=== PATIENT | male | born 1970 | race Caucasian/White ===

== ENCOUNTER → 2016-03-26 | Outpatient (CLI) | payer MEDICARE, MEDICAID ==
[~2016-03-26] MED LIST: ARIP20TA5 PO; ASP325EC PO; BUPR100T71 PO; FAM20T PO; FLUO20CA19 PO; MET25T PO; MORP1CAP31 PO; OXYC10TA44 PO; PRAV20TA3 GT; WARF5TAB71 PO
[2016-03-26 09:05] LABS: Basophils # (auto) 0 uL; Basophils % (auto) 0.3 % (0.0-2.0); DEFINITIVE VIEW TRANSMISSION; Eosinophils # (auto) 0.2 uL; Eosinophils % (auto) 2.8 % (0.0-7.0); Hematocrit 53.5 % (41.0-53.0); Hemoglobin 17.4 g/dL (13.5-17.5); Lymphocytes # (auto) 1.5 uL; Lymphocytes % (auto) 19.3 % (10.0-50.0); Mean Corpuscular Hgb Conc. 32.5 g/dL (32.0-36.0); Mean Corpuscular Volume 86.1 fL (80.0-100.0); Mean Platelet Volume 10.9 fL (7.4-10.4); Monocytes # (auto) 0.4 uL; Monocytes % (auto) 5.2 % (0.0-12.0); Neutrophils # (auto) 5.5 uL; Neutrophils % (auto) 72.4 % (37.0-80.0); Platelet Count (auto) 243 10^3/uL (140-450); Red Cell Distribution Width 15.1 % (11.6-16.0); White Blood Cell 7.6 10^3/uL (4.4-10.8)
[2016-03-26 09:32] LABS: Urine Bilirubin Negative (Negative); Urine Blood Negative /uL (Negative); Urine Color Yellow (Yellow); Urine Glucose Normal (Normal); Urine Ketone Negative (Negative); Urine Mucus FEW (None Seen); Urine Nitrite Negative (Negative); Urine RBC <1 /hpf (0 - 3); Urine Squamous Epithelial Cell FEW /hpf (<5); Urine Urobilinogen Normal (Negative)
[2016-03-26 09:33] LABS: Albumin 4.6 g/dL (3.4-5.0); BUN/Creatinine Ratio 17.1; Bilirubin, Total 0.8 mg/dL (0.2-1.0); Calcium 9.2 mg/dL (8.5-10.1); Potassium 4.3 mmol/L (3.5-5.1); Total Protein 8.5 g/dL (6.4-8.2)
== END | disposition home or self-care (01) ==
LOC: LAB 07:18
PROVIDERS: ATTEND Internal Medicine
DX: Z00.00 Encounter for general adult medical examination without abnormal findings (principal)
CPT/HCPCS: 36415; 80053; 80061; 81001; 84403; 84443; 85025; 85049

== ENCOUNTER → 2016-08-25 | Outpatient (CLI) | payer MEDICARE, MEDICAID ==
[~2016-08-25] MED LIST changes: +ARIP1TAB7 PO; -ARIP20TA5 PO
[2016-08-25 07:27] LABS: Urine Bilirubin Negative (Negative); Urine Blood TRACE /uL (Negative); Urine Color Yellow (Yellow); Urine Glucose Normal (Normal); Urine Ketone Negative (Negative); Urine Mucus FEW (None Seen); Urine Nitrite Negative (Negative); Urine RBC 1 /hpf (0 - 3); Urine Squamous Epithelial Cell FEW /hpf (<5); Urine Urobilinogen Normal (Negative); Urine pH 5.5 (5.0-8.0)
[2016-08-25 07:39] LABS: Basophils # (auto) 0 uL; Basophils % (auto) 0.5 % (0.0-2.0); Eosinophils # (auto) 0.1 uL; Eosinophils % (auto) 3.5 % (0.0-7.0); Hematocrit 42.3 % (41.0-53.0); Hemoglobin 14.3 g/dL (13.5-17.5); Mean Corpuscular Hemoglobin 29.2 pg (28.0-32.0); Mean Corpuscular Hgb Conc. 33.7 g/dL (32.0-36.0); Mean Corpuscular Volume 86.6 fL (80.0-100.0); Monocytes # (auto) 0.4 uL; Monocytes % (auto) 8.9 % (0.0-12.0); Neutrophils # (auto) 2.6 uL; Neutrophils % (auto) 63.1 % (37.0-80.0); Platelet Count (auto) 223 10^3/uL (140-450); Red Cell Distribution Width 15.1 % (11.6-16.0); White Blood Cell 4.1 10^3/uL (4.4-10.8)
[2016-08-25 07:44] LABS: Albumin 3.8 g/dL (3.4-5.0); BUN/Creatinine Ratio 17.1; Bilirubin, Total 0.4 mg/dL (0.2-1.0); Calcium 8.5 mg/dL (8.5-10.1); Potassium 4.6 mmol/L (3.5-5.1); Total Protein 6.9 g/dL (6.4-8.2)
== END | disposition home or self-care (01) ==
LOC: LAB 06:39
PROVIDERS: ATTEND Internal Medicine
DX: I10 Essential (primary) hypertension (principal); F20.3 Undifferentiated schizophrenia; Z79.899 Other long term (current) drug therapy
CPT/HCPCS: 36415; 80053; 80061; 81001; 82306; 84403; 84443; 85025

== ENCOUNTER 2016-10-24 08:28 | Emergency (ER) | payer MEDICARE, MEDICAID ==
[~2016-10-24] VITALS: Ht 182.9 cm; Wt 136.1 kg
[2016-10-24 09:28] LABS: Basophils # (auto) 0 uL; Basophils % (auto) 0.2 % (0.0-2.0); CONDITION Y; Eosinophils # (auto) 0 uL; Eosinophils % (auto) 0.5 % (0.0-7.0); Hematocrit 48.4 % (41.0-53.0); Hemoglobin 16.6 g/dL (13.5-17.5); Lymphocytes # (auto) 0.8 uL; Lymphocytes % (auto) 10.1 % (10.0-50.0); Mean Corpuscular Hemoglobin 29.4 pg (28.0-32.0); Mean Corpuscular Hgb Conc. 34.3 g/dL (32.0-36.0); Mean Corpuscular Volume 85.8 fL (80.0-100.0); Mean Platelet Volume 11.3 fL (7.4-10.4); Monocytes # (auto) 0.2 uL; Monocytes % (auto) 2.7 % (0.0-12.0); Neutrophils # (auto) 7.1 uL; Neutrophils % (auto) 86.5 % (37.0-80.0); Platelet Count (auto) 210 10^3/uL (140-450); Red Cell Distribution Width 13.4 % (11.6-16.0); White Blood Cell 8.2 10^3/uL (4.4-10.8)
[2016-10-24 09:46] LABS: Albumin 4.4 g/dL (3.4-5.0); Anion Gap 12 (5-15); Blood Urea Nitrogen 13 mg/dL (7-18); Carbon Dioxide 21 mmol/L (21-32); Chloride 112 mmol/L (98-107); Glucose 144 mg/dL (74-106); Magnesium 2.4 mg/dL (1.6-2.6); Potassium 3.7 mmol/L (3.5-5.1); Sodium 145 mmol/L (136-145)
[2016-10-24 09:48] LABS: BUN/Creatinine Ratio 9.4; GFR African American 70 mL/min; GFR Non-African American 58 mL/min
[2016-10-24 09:54] LABS: Alkaline Phosphatase 93 U/L (45-117); Aspartate Aminotransferase 25 U/L (15-37); Bilirubin, Total 0.6 mg/dL (0.2-1.0); Total Protein 7.8 g/dL (6.4-8.2)
[2016-10-24] MEDS ORDERED: SODIUM CHLORIDE 0.9% 1,000 ML IV ONE (10:51)
[2016-10-24] MEDS ORDERED: PROMETHAZINE HCL 25 MG/ML 1ML IV PRN (11:00)
[2016-10-24 11:31] LABS: INR 1.58 (0.9-1.15); Partial Thromboplastin Time 32.7 sec (22.64-33.71)
[2016-10-24 11:32] LABS: Prothrombin Time 17.3 sec (9.37-12.3)
[2016-10-24 12:01] LABS: Urine RBC None Seen /hpf (0 - 3)
[2016-10-24 12:09] LABS: Urine Bilirubin Negative (Negative); Urine Blood Negative /uL (Negative); Urine Color Yellow (Yellow); Urine Glucose TRACE mg/dL (Normal); Urine Mucus FEW (None Seen); Urine Nitrite Negative (Negative); Urine Squamous Epithelial Cell FEW /hpf (<5); Urine Urobilinogen Normal (Negative)
[2016-10-24 12:10] LABS: Urine Ketone 2+ (Negative)
[2016-10-24] MEDS ORDERED: MORPHINE SULFATE 4 MG/ML SYRG IV ONE (13:30)
[2016-10-24 14:33] VITALS: BP 157/83
== END 2016-10-24 14:45 | disposition home or self-care (01) ==
LOC: EDBD 08:28 → ER 08:29
DX: K52.9 Noninfective gastroenteritis and colitis, unspecified (principal); K90.49 Malabsorption due to intolerance, not elsewhere classified; G89.29 Other chronic pain; M54.5 Low back pain; I48.91 Unspecified atrial fibrillation; F31.9 Bipolar disorder, unspecified; F20.9 Schizophrenia, unspecified; K21.9 Gastro-esophageal reflux disease without esophagitis; E78.5 Hyperlipidemia, unspecified; Z88.6 Allergy status to analgesic agent; F12.10 Cannabis abuse, uncomplicated; Z79.82 Long term (current) use of aspirin; Z79.899 Other long term (current) drug therapy
CPT/HCPCS: 36415; 71020; 74176; 80053; 81001; 83690; 83735; 84443; 84484; 85025; 85610; 85730; 93005; 94761; 96361; 96374; 96375; 99285; J2270; J2550; J7030

== ENCOUNTER → 2017-02-21 | Outpatient (CLI) | payer MEDICARE, MEDICAID ==
[~2017-02-21] MED LIST changes: +AMAN100C12 PO; +BUSP10TA90 PO; +CARB25TA3 PO; +FLUO1TAB14 PO; +PREG150C PO; +ZOLP10TA PO
[2017-02-21 14:47] LABS: Urine RBC None Seen /hpf (0 - 3)
[2017-02-21 14:58] LABS: Basophils # (auto) 0 uL; Basophils % (auto) 0.5 % (0.0-2.0); Eosinophils # (auto) 0.2 uL; Eosinophils % (auto) 2.8 % (0.0-7.0); Hematocrit 45.1 % (41.0-53.0); Hemoglobin 15.4 g/dL (13.5-17.5); Lymphocytes # (auto) 1.2 uL; Lymphocytes % (auto) 23.5 % (10.0-50.0); Mean Corpuscular Hemoglobin 29.9 pg (28.0-32.0); Mean Corpuscular Hgb Conc. 34.2 g/dL (32.0-36.0); Mean Corpuscular Volume 87.3 fL (80.0-100.0); Mean Platelet Volume 9.3 fL (6.9-10.8); Monocytes # (auto) 0.5 uL; Monocytes % (auto) 8.6 % (0.0-12.0); Neutrophils # (auto) 3.4 uL; Neutrophils % (auto) 64.6 % (37.0-80.0); Nucleated Red Blood Cells % 0.2 %; Platelet Count (auto) 247 10^3/uL (140-450); Red Cell Distribution Width 14.2 % (11.8-14.3); White Blood Cell 5.3 10^3/uL (4.4-10.8)
[2017-02-21 15:15] LABS: Urine Bilirubin Negative (Negative); Urine Blood TRACE /uL (Negative); Urine Color Yellow (Yellow); Urine Glucose Normal (Normal); Urine Ketone Negative (Negative); Urine Nitrite Negative (Negative); Urine Squamous Epithelial Cell FEW /hpf (<5); Urine Urobilinogen Normal (Negative)
[2017-02-21 15:23] LABS: BUN/Creatinine Ratio 20.6; Bilirubin, Total 0.3 mg/dL (0.2-1.0); Calcium 8.6 mg/dL (8.5-10.1); Potassium 4.3 mmol/L (3.5-5.1); Total Protein 7.6 g/dL (6.4-8.2)
[2017-02-22 05:06] LABS: Thyroid Peroxidase (TPO) Ab 12 IU/mL (0-34)
[2017-02-22 20:06] LABS: Sjogren's Anti-SS-A Antibody <0.2 AI (0.0-0.9)
== END | disposition home or self-care (01) ==
LOC: LAB 13:45
DX: R53.83 Other fatigue (principal)
CPT/HCPCS: 36415; 80053; 80061; 81001; 84403; 84443; 85025; 86225; 86235

== ENCOUNTER → 2017-02-25 | Outpatient (CLI) | payer MEDICARE, MEDICAID ==
[2017-02-28 10:31] LABS: Hepatitis B Surface Antibody Positive
== END | disposition home or self-care (01) ==
LOC: LAB 14:51
DX: I10 Essential (primary) hypertension (principal); R53.82 Chronic fatigue, unspecified; R68.83 Chills (without fever)
CPT/HCPCS: 36415; 82270; 82607; 84403; 84439; 84443; 84481; 84550; 86703; 86706; 86708; 86709; 86803

== ENCOUNTER 2017-03-03 21:35 | Emergency (ER) | payer MEDICARE, MEDICAID ==
[~2017-03-03] VITALS: Ht 182.9 cm; Wt 124.7 kg
[2017-03-04 00:22] VITALS: BP 110/75
[2017-03-04] MEDS ORDERED: BACITRACIN TOP OINT 1 UD PKG TOP ONE (00:45)
[2017-03-04] MEDS ORDERED: TETANUS-DIPTH-ACEL PERTUSSIS 0.5ML SYRG IM ONE (06:00)
== END 2017-03-04 00:48 | disposition home or self-care (01) ==
LOC: ER 21:35
DX: S61.211A Laceration without foreign body of left index finger without damage to nail, initial encounter (principal); K21.9 Gastro-esophageal reflux disease without esophagitis; I10 Essential (primary) hypertension; E78.5 Hyperlipidemia, unspecified; Z79.01 Long term (current) use of anticoagulants; Z79.82 Long term (current) use of aspirin; W26.8XXA Contact with other sharp object(s), not elsewhere classified, initial encounter; Y93.89 Activity, other specified; Y92.89 Other specified places as the place of occurrence of the external cause; Y99.8 Other external cause status
CPT/HCPCS: 12011

== ENCOUNTER 2017-03-04 10:13 | Emergency (ER) | payer MEDICARE, MEDICAID ==
[~2017-03-04] VITALS: Ht 182.9 cm; Wt 124.7 kg
[2017-03-04 10:28] VITALS: BP 121/76
[2017-03-16] MEDS ORDERED: TETANUS-DIPTH-ACEL PERTUSSIS 0.5ML SYRG IM ONE (11:30)
== END 2017-03-04 11:43 | disposition home or self-care (01) ==
LOC: ER 10:13
DX: S61.211D Laceration without foreign body of left index finger without damage to nail, subsequent encounter (principal); K21.9 Gastro-esophageal reflux disease without esophagitis; E78.5 Hyperlipidemia, unspecified; I10 Essential (primary) hypertension; Z23 Encounter for immunization; Z79.01 Long term (current) use of anticoagulants; Z79.82 Long term (current) use of aspirin; Z82.49 Family history of ischemic heart disease and other diseases of the circulatory system; X58.XXXD Exposure to other specified factors, subsequent encounter
CPT/HCPCS: 90471; 90715

== ENCOUNTER → 2017-03-11 | Outpatient (CLI) | payer MEDICARE, MEDICAID | END | disposition home or self-care (01) | LOC: LAB 16:10 | PROVIDERS: ATTEND Surgery | DX: L74.9 Eccrine sweat disorder, unspecified (principal); I10 Essential (primary) hypertension; R61 Generalized hyperhidrosis | CPT/HCPCS: 36415; 85652; 86141 ==

== ENCOUNTER → 2017-03-23 | Outpatient (CLI) | payer MEDICARE, MEDICAID | END | disposition home or self-care (01) | LOC: LAB 10:19 | PROVIDERS: ATTEND Physician Assistant | DX: M19.90 Unspecified osteoarthritis, unspecified site (principal); E29.1 Testicular hypofunction | CPT/HCPCS: 36415; 84403 ==

== ENCOUNTER → 2017-04-13 | Outpatient (CLI) | payer MEDICARE, MEDICAID ==
[2017-04-13 08:18] LABS: Urine Bacteria NONE SEEN /hpf (None Seen); Urine Blood Negative /uL (Negative); Urine Mucus FEW (None Seen); Urine Specific Gravity 1.035 (1.001-1.035); Urine WBC 3 /hpf (0 - 3)
[2017-04-13 08:22] LABS: Albumin 4.2 g/dL (3.4-5.0); BUN/Creatinine Ratio 17.6; Bilirubin, Total 0.4 mg/dL (0.2-1.0); CRP High Sensitivity 0.08 mg/dL (< 0.3); Calcium 9.2 mg/dL (8.5-10.1); Potassium 4.1 mmol/L (3.5-5.1); Total Protein 8.1 g/dL (6.4-8.2)
== END | disposition home or self-care (01) ==
LOC: LAB 06:33
PROVIDERS: ATTEND Internal Medicine
DX: I42.9 Cardiomyopathy, unspecified (principal); K21.9 Gastro-esophageal reflux disease without esophagitis; F20.89 Other schizophrenia; I13.0 Hypertensive heart and chronic kidney disease with heart failure and stage 1 through stage 4 chronic kidney disease, or unspecified chronic kidney disease; N18.3 Chronic kidney disease, stage 3 (moderate); I50.9 Heart failure, unspecified; E78.5 Hyperlipidemia, unspecified; I48.91 Unspecified atrial fibrillation; R30.0 Dysuria; Z79.899 Other long term (current) drug therapy; Z79.01 Long term (current) use of anticoagulants; Z79.82 Long term (current) use of aspirin; Z87.891 Personal history of nicotine dependence
CPT/HCPCS: 36415; 80053; 80061; 81001; 83036; 84153; 84443; 86141

== ENCOUNTER → 2017-05-11 | Outpatient (CLI) | payer MEDICARE, MEDICAID ==
[~2017-05-11] MED LIST changes: +BUPIVACAINE 0.25% INJ 50ML VIAL ONE; +IOHEXOL 300 MG/ML 100ML BOTTLE IJ ONE; +LIDOCAINE 2%HCL (LOCAL ANESTH.) INJ 20ML MDV ONE; +methylPREDNISolone ACETATE 80 MG/ML VL ONE
== END | disposition home or self-care (01) ==
LOC: XY 09:04
PROVIDERS: ATTEND Orthopaedic Surgery Adult Reconstructive Orthopaedic Surgery
DX: M25.511 Pain in right shoulder (principal); Z88.5 Allergy status to narcotic agent; F20.9 Schizophrenia, unspecified; F31.9 Bipolar disorder, unspecified; Z87.891 Personal history of nicotine dependence; F41.0 Panic disorder [episodic paroxysmal anxiety]
CPT/HCPCS: 20610; 77002; A4223; J1040; J3490; Q9967; 76000

== ENCOUNTER → 2017-05-26 | Outpatient (CLI) | payer MEDICARE, MEDICAID ==
[~2017-05-26] MED LIST changes: -BUPIVACAINE 0.25% INJ 50ML VIAL ONE; -IOHEXOL 300 MG/ML 100ML BOTTLE IJ ONE; -LIDOCAINE 2%HCL (LOCAL ANESTH.) INJ 20ML MDV ONE; -methylPREDNISolone ACETATE 80 MG/ML VL ONE
[2017-05-26 10:37] VITALS: BP 128/76
== END | disposition home or self-care (01) ==
LOC: XYW 09:43
PROVIDERS: ATTEND Internal Medicine
DX: R07.89 Other chest pain (principal)
CPT/HCPCS: 93017

== ENCOUNTER 2017-12-01 14:21 | Inpatient (IN) | payer MEDICARE, MEDICAID ==
[~2017-12-01] VITALS: Ht 182.9 cm; Wt 123.5 kg
[2017-12-01] MEDS ORDERED: SODIUM CHLORIDE 0.9% 1,000 ML IVB ONE (14:37)
[2017-12-01] MEDS ORDERED: MORPHINE SULFATE 4 MG/ML SYR/VIAL IV ONE (14:45)
[2017-12-01] MEDS ORDERED: PROCHLORPERAZINE EDISYLATE 5 MG/ML 2ML VIAL IV ONE (14:45)
[2017-12-01 15:04] LABS: Urine Bacteria NONE SEEN /hpf (None Seen); Urine Blood 1+ /uL (Negative); Urine Mucus FEW (None Seen); Urine Sperm PRESENT /hpf (None Seen); Urine WBC 1 /hpf (0 - 3)
[2017-12-01] MEDS: SODIUM CHLORIDE 0.9% 1,000 ML IV SCH ×2 (15:37→20:04)
[2017-12-01] MEDS ORDERED: LORazepam 0.5 MG TAB PO PRN (15:45)
[2017-12-01] MEDS ORDERED: ACETAMINOPHEN 500 MG TAB PO PRN (15:45)
[2017-12-01] MEDS ORDERED: TEMAZEPAM 15 MG CAP PO PRN (15:45)
[2017-12-01] MEDS ORDERED: NITROGLYCERIN 0.4 MG SL TAB SL PRN (15:45)
[2017-12-01] MEDS ORDERED: MORPHINE SULF INJ 2 MG/ML SYRINGE 1ML IV PRN (15:45)
[2017-12-01 15:54] LABS: Basophils # (auto) 0 uL; Eosinophils # (auto) 0 uL; Lymphocytes # (auto) 0.8 uL; Monocytes # (auto) 0.3 uL; Nucleated Red Blood Cells % 0.1 %; White Blood Cell 8.4 10^3/uL (4.4-10.8)
[2017-12-01 15:57] LABS: Basophils % (auto) 0.2 % (0.0-2.0); Eosinophils % (auto) 0.2 % (0.0-7.0); Hematocrit 54.3 % (41.0-53.0); Lymphocytes % (auto) 9.5 % (10.0-50.0); Mean Corpuscular Hemoglobin 30.2 pg (28.0-32.0); Mean Corpuscular Volume 86.4 fL (80.0-100.0); Monocytes % (auto) 3.7 % (0.0-12.0); Neutrophils # (auto) 7.3 uL; Neutrophils % (auto) 86.4 % (37.0-80.0); Platelet Count (auto) 243 10^3/uL (140-450)
[2017-12-01 15:58] LABS: Hemoglobin 18.9 g/dL (13.5-17.5); Red Blood Cells 6.13 10^6/uL (4.5-5.90)
[2017-12-01 16:14] LABS: Lactic Acid w/Reflex 4.1 mmol/L (0.4-2.0)
[2017-12-01 16:16] LABS: Albumin 4.8 g/dL (3.4-5.0); BUN/Creatinine Ratio 14.8; Calcium 9.5 mg/dL (8.5-10.1); Magnesium 1.9 mg/dL (1.6-2.6); Potassium 3.4 mmol/L (3.5-5.1); Total Protein 8.8 g/dL (6.4-8.2)
[2017-12-01] MEDS ORDERED: ASPI81TA27 PO (17:07)
[2017-12-01] MEDS ORDERED: PREG150C PO (17:07)
[2017-12-01] MEDS ORDERED: LUBI24CA6 PO (17:07)
[2017-12-01] MEDS ORDERED: FURO40TA4 PO (17:07)
[2017-12-01] MEDS ORDERED: LURA40TA PO (17:07)
[2017-12-01] MEDS ORDERED: ACET-1156 PO (17:07)
[2017-12-01] MEDS ORDERED: METO-159 PO (17:07)
[2017-12-01 17:38] LABS: INR 1.23 (0.9-1.15); Partial Thromboplastin Time 27.4 sec (23.78-33.04)
[2017-12-01 17:55] VITALS: BP 147/98
[2017-12-01 18:00] VITALS: BP 147/98
[2017-12-01] MEDS: CARBIDOPA W LEVODOPA 25/100mg TABLET PO SCH ×2 (18:00→21:48)
[2017-12-01] MEDS: MORPHINE SULFATE 4 MG/ML SYR/VIAL IV PRN ×2 (18:43→23:18)
[2017-12-01] MEDS: ONDANSETRON HCL 4 MG/2 ML VIAL IV PRN ×2 (18:44→23:13)
[2017-12-01] MEDS ORDERED: WARFARIN SODIUM 10 MG TAB PO ONE (19:45)
[2017-12-01] MEDS: HYDROcodone-ACET 5/325MG TAB PO PRN (19:58)
[2017-12-01 20:00] VITALS: BP 160/111
[2017-12-01] MEDS: PRAVASTATIN SODIUM 20 MG TAB PO SCH (21:43)
[2017-12-01] MEDS: buPROPion HCL 75 MG TAB PO SCH (21:45)
[2017-12-01] MEDS: PREGABALIN CAPSULE 75 MG CAP PO SCH (21:46)
[2017-12-01] MEDS: ZOLPIDEM TARTRATE 5 MG TAB PO SCH (21:46)
[2017-12-01] MEDS: busPIRone HCL 10 MG TAB PO SCH (21:47)
[2017-12-01] MEDS: METOPROLOL TARTRATE 50 MG TAB PO SCH (21:47)
[2017-12-01] MEDS: FLUoxetine HCL 20 MG CAP PO SCH (21:49)
[2017-12-01] MEDS: AMANTADINE HCL 100 MG CAP PO SCH (21:50)
[2017-12-02] MEDS ORDERED: DOCUSATE SOD 100 MG CAP PO ONE (00:20)
[2017-12-02] MEDS: CARBIDOPA W LEVODOPA 25/100mg TABLET PO SCH ×4 (01:01→22:42)
[2017-12-02] MEDS: MORPHINE SULFATE 4 MG/ML SYR/VIAL IV PRN ×4 (03:53→19:29)
[2017-12-02] MEDS: ONDANSETRON HCL 4 MG/2 ML VIAL IV PRN ×4 (03:53→19:29)
[2017-12-02] MEDS: SODIUM CHLORIDE 0.9% 1,000 ML IV SCH ×2 (04:26→21:37)
[2017-12-02 05:43] VITALS: BP 163/93
[2017-12-02 06:35] LABS: Basophils # (auto) 0 uL; Basophils % (auto) 0.1 % (0.0-2.0); Eosinophils # (auto) 0 uL; Hematocrit 45.9 % (41.0-53.0); Hemoglobin 16.3 g/dL (13.5-17.5); Lymphocytes # (auto) 0.6 uL; Lymphocytes % (auto) 5.1 % (10.0-50.0); Mean Corpuscular Hemoglobin 30.5 pg (28.0-32.0); Mean Corpuscular Hgb Conc. 35.4 g/dL (32.0-36.0); Monocytes # (auto) 0.4 uL; Neutrophils # (auto) 10.2 uL; Neutrophils % (auto) 90.8 % (37.0-80.0); Nucleated Red Blood Cells % 0.1 %; Platelet Count (auto) 217 10^3/uL (140-450); Red Blood Cells 5.34 10^6/uL (4.5-5.90); Red Cell Distribution Width 13.7 % (11.8-14.3); White Blood Cell 11.2 10^3/uL (4.4-10.8)
[2017-12-02 06:47] LABS: INR 1.64 (0.9-1.15); Prothrombin Time 17.1 sec (9.27-12.13)
[2017-12-02] MEDS: HYDROcodone-ACET 5/325MG TAB PO PRN ×2 (06:47→22:18)
[2017-12-02 08:00] VITALS: BP 159/99
[2017-12-02] MEDS: AMANTADINE HCL 100 MG CAP PO SCH ×2 (10:00→22:00)
[2017-12-02] MEDS: FLUoxetine HCL 20 MG CAP PO SCH ×3 (10:00→22:00)
[2017-12-02] MEDS: ARIPIPRAZOLE 20 MG PO SCH (10:00)
[2017-12-02] MEDS: DOCUSATE SOD 100 MG CAP PO SCH ×2 (10:48→22:15)
[2017-12-02] MEDS: PANTOPRAZOLE 40 MG TAB PO SCH (10:49)
[2017-12-02] MEDS: METOPROLOL TARTRATE 50 MG TAB PO SCH ×2 (10:49→22:18)
[2017-12-02] MEDS: PREGABALIN CAPSULE 75 MG CAP PO SCH ×2 (10:49→22:26)
[2017-12-02] MEDS: buPROPion HCL 75 MG TAB PO SCH ×2 (10:50→22:16)
[2017-12-02] MEDS ORDERED: VANCOMYCIN PER PHARMACY 0 MG IV SCH (12:45)
[2017-12-02 12:47] VITALS: BP 145/82
[2017-12-02] MEDS: VANCOMYCIN 1GM/250ML 250 ML IV SCH ×2 (15:14→22:27)
[2017-12-02] MEDS ORDERED: MORPHINE SULFATE 4 MG/ML SYR/VIAL IV PRN (16:15)
[2017-12-02] MEDS ORDERED: WARFARIN SODIUM 5 MG TAB PO ONE (17:00)
[2017-12-02 17:08] VITALS: BP 129/75
[2017-12-02 21:43] VITALS: BP 131/71
[2017-12-02] MEDS: busPIRone HCL 10 MG TAB PO SCH (22:00)
[2017-12-02] MEDS: ZOLPIDEM TARTRATE 5 MG TAB PO SCH (22:00)
[2017-12-02] MEDS: PRAVASTATIN SODIUM 20 MG TAB PO SCH (22:17)
[2017-12-02] MEDS ORDERED: ASPI-231 PO ×2 (22:31)
[2017-12-02] MEDS ORDERED: VORT1TAB PO (22:41)
[2017-12-03] MEDS: ONDANSETRON HCL 4 MG/2 ML VIAL IV PRN ×3 (00:43→09:49)
[2017-12-03] MEDS: MORPHINE SULFATE 4 MG/ML SYR/VIAL IV PRN ×3 (00:43→09:50)
[2017-12-03 05:30] VITALS: BP 119/78
[2017-12-03] MEDS: CARBIDOPA W LEVODOPA 25/100mg TABLET PO SCH ×2 (05:32→12:00)
[2017-12-03] MEDS: VANCOMYCIN 1GM/250ML 250 ML IV SCH (05:37)
[2017-12-03] MEDS: SODIUM CHLORIDE 0.9% 1,000 ML IV SCH (05:39)
[2017-12-03 05:55] LABS: Basophils # (auto) 0 uL; Basophils % (auto) 0.4 % (0.0-2.0); Eosinophils # (auto) 0 uL; Eosinophils % (auto) 0.3 % (0.0-7.0); Hematocrit 41.2 % (41.0-53.0); Hemoglobin 14.1 g/dL (13.5-17.5); Lymphocytes # (auto) 1.6 uL; Lymphocytes % (auto) 20.4 % (10.0-50.0); Mean Corpuscular Hemoglobin 29.7 pg (28.0-32.0); Mean Corpuscular Hgb Conc. 34.2 g/dL (32.0-36.0); Mean Corpuscular Volume 86.7 fL (80.0-100.0); Monocytes # (auto) 0.6 uL; Neutrophils # (auto) 5.5 uL; Neutrophils % (auto) 70.9 % (37.0-80.0); Nucleated Red Blood Cells % 0.1 %; Platelet Count (auto) 162 10^3/uL (140-450); Red Blood Cells 4.75 10^6/uL (4.5-5.90); Red Cell Distribution Width 14.1 % (11.8-14.3); White Blood Cell 7.8 10^3/uL (4.4-10.8)
[2017-12-03 06:05] LABS: Albumin 3.5 g/dL (3.4-5.0); BUN/Creatinine Ratio 15.5; Bilirubin, Total 0.5 mg/dL (0.2-1.0); Potassium 3.5 mmol/L (3.5-5.1); Total Protein 6.3 g/dL (6.4-8.2)
[2017-12-03 06:10] LABS: INR 3.57 (0.9-1.15); Partial Thromboplastin Time 35.4 sec (23.78-33.04); Prothrombin Time 35.5 sec (9.27-12.13)
[2017-12-03] MEDS: METOPROLOL TARTRATE 50 MG TAB PO SCH (09:46)
[2017-12-03] MEDS: PREGABALIN CAPSULE 75 MG CAP PO SCH (09:46)
[2017-12-03] MEDS: PANTOPRAZOLE 40 MG TAB PO SCH (09:47)
[2017-12-03] MEDS: DOCUSATE SOD 100 MG CAP PO SCH (09:47)
[2017-12-03] MEDS: buPROPion HCL 75 MG TAB PO SCH (09:48)
[2017-12-03] MEDS: FLUoxetine HCL 20 MG CAP PO SCH (09:48)
[2017-12-03] MEDS: ARIPIPRAZOLE 20 MG PO SCH (09:49)
[2017-12-03] MEDS: AMANTADINE HCL 100 MG CAP PO SCH (09:49)
[2017-12-03 10:00] VITALS: BP 132/79
[2017-12-03 10:52] VITALS: BP 132/79
== END 2017-12-03 13:00 | disposition home or self-care (01) | DRG 872 ==
LOC: ER 14:21 → EDBD 14:21 → TELE 14:22 → TELE-CENTR 17:25
PROVIDERS: ADMIT Internal Medicine; ATTEND Family Medicine
DX: A41.9 Sepsis, unspecified organism (principal); E87.6 Hypokalemia; R73.9 Hyperglycemia, unspecified; E78.5 Hyperlipidemia, unspecified; E86.0 Dehydration; E78.00 Pure hypercholesterolemia, unspecified; F12.10 Cannabis abuse, uncomplicated; F20.9 Schizophrenia, unspecified; F32.9 Major depressive disorder, single episode, unspecified; F41.9 Anxiety disorder, unspecified; G20 Parkinson's disease; G89.29 Other chronic pain; K40.20 Bilateral inguinal hernia, without obstruction or gangrene, not specified as recurrent; I10 Essential (primary) hypertension; E66.9 Obesity, unspecified; I48.91 Unspecified atrial fibrillation; K21.9 Gastro-esophageal reflux disease without esophagitis; M54.9 Dorsalgia, unspecified; K57.90 Diverticulosis of intestine, part unspecified, without perforation or abscess without bleeding; T40.7X5A Adverse effect of cannabis (derivatives), initial encounter; Y92.89 Other specified places as the place of occurrence of the external cause; Z82.49 Family history of ischemic heart disease and other diseases of the circulatory system; Z79.01 Long term (current) use of anticoagulants; Z68.36 Body mass index [BMI] 36.0-36.9, adult; Z88.5 Allergy status to narcotic agent
CPT/HCPCS: 36415; 71045; 74176; 76705; 80053; 81001; 82150; 82270; 82378; 83605; 83690; 83735; 85025; 85610; 85652; 85730; 86141; 87040; 87077; 87186; 93005; 94761; 96374; 96375; J2405

== ENCOUNTER 2017-12-14 11:56 | Inpatient (IN) | payer MEDICARE, MEDICAID ==
[~2017-12-14] VITALS: Ht 182.9 cm; Wt 124.0 kg
[~2017-12-14 11:56] MED LIST changes: +ACET-1156 PO; -AMAN100C12 PO; -ARIP1TAB7 PO; -ASP325EC PO; +ASPI-231 PO; -BUPR100T71 PO; -BUSP10TA90 PO; -CARB25TA3 PO; -FLUO1TAB14 PO; -FLUO20CA19 PO; +FURO40TA4 PO; +LUBI24CA6 PO; +LURA40TA PO; +METO-159 PO; +VORT1TAB PO; -ZOLP10TA PO
[2017-12-14 15:49] LABS: Urine Bacteria FEW /hpf (None Seen); Urine Blood 1+ /uL (Negative); Urine Hyaline Cast FEW /lpf (0 - 2); Urine Mucus FEW (None Seen); Urine Specific Gravity 1.031 (1.001-1.035); Urine WBC 2 /hpf (0 - 3)
[2017-12-14 15:52] LABS: Basophils # (auto) 0 uL; Basophils % (auto) 0.1 % (0.0-2.0); Eosinophils # (auto) 0 uL; Hematocrit 48.9 % (41.0-53.0); Hemoglobin 17.1 g/dL (13.5-17.5); Lymphocytes # (auto) 0.6 uL; Lymphocytes % (auto) 4.5 % (10.0-50.0); Mean Corpuscular Hemoglobin 30.1 pg (28.0-32.0); Mean Corpuscular Hgb Conc. 34.9 g/dL (32.0-36.0); Mean Corpuscular Volume 86.3 fL (80.0-100.0); Monocytes # (auto) 0.5 uL; Monocytes % (auto) 3.4 % (0.0-12.0); Neutrophils # (auto) 12.3 uL; Nucleated Red Blood Cells % 0.2 %; Platelet Count (auto) 244 10^3/uL (140-450); Red Blood Cells 5.67 10^6/uL (4.5-5.90); Red Cell Distribution Width 13.9 % (11.8-14.3); White Blood Cell 13.4 10^3/uL (4.4-10.8)
[2017-12-14 16:13] LABS: Albumin 4.5 g/dL (3.4-5.0); BUN/Creatinine Ratio 14.9; Bilirubin, Total 1.1 mg/dL (0.2-1.0); Calcium 9.2 mg/dL (8.5-10.1); Potassium 3.1 mmol/L (3.5-5.1); Total Protein 8.4 g/dL (6.4-8.2)
[2017-12-14] MEDS ORDERED: SODIUM CHLORIDE 0.9% 1,000 ML IVB ONE ×2 (16:40→18:34)
[2017-12-14] MEDS ORDERED: metroNIDAZOLE 500MG/100ML 100 ML IV ONE ×2 (17:00→18:15)
[2017-12-14] MEDS ORDERED: POTASSIUM EFFERVESENT TAB 25 MEQ PO ONE (17:00)
[2017-12-14] MEDS ORDERED: ONDANSETRON HCL 4 MG/2 ML VIAL ONE (17:06)
[2017-12-14] MEDS ORDERED: ONDANSETRON HCL 4 MG/2 ML VIAL IV ONE (17:15)
[2017-12-14 18:02] LABS: INR 1.29 (0.9-1.15); Partial Thromboplastin Time 34.3 sec (23.78-33.04); Prothrombin Time 13.6 sec (9.27-12.13)
[2017-12-14] MEDS ORDERED: MORPHINE SULFATE 4 MG/ML SYR/VIAL IV ONE (18:15)
[2017-12-14] MEDS ORDERED: VANCOMYCIN HCL 500MG/5ML ORAL SOL PO ONE (18:15)
[2017-12-14] MEDS ORDERED: cefTRIAXone 1GM/10ml IVPUSH 10 ML IV ONE (18:30)
[2017-12-14] MEDS ORDERED: LORazepam 0.5 MG TAB PO PRN (18:30)
[2017-12-14] MEDS ORDERED: DEXTROSE (50%) 50ML SYRG IV PRN (18:30)
[2017-12-14] MEDS ORDERED: MORPHINE SULFATE 4 MG/ML SYR/VIAL IV PRN ×2 (18:30)
[2017-12-14] MEDS ORDERED: NITROGLYCERIN 0.4 MG SL TAB SL PRN (18:30)
[2017-12-14] MEDS ORDERED: ACETAMINOPHEN 500 MG TAB PO PRN (18:30)
[2017-12-14] MEDS ORDERED: ONDANSETRON HCL 4 MG/2 ML VIAL IV PRN (18:30)
[2017-12-14] MEDS ORDERED: TEMAZEPAM 15 MG CAP PO PRN (18:30)
[2017-12-14] MEDS ORDERED: WARFARIN SODIUM 5 MG TAB PO ONE ×2 (20:30→22:15)
[2017-12-14] MEDS: FUROSEMIDE 40 MG TAB PO SCH (23:45)
[2017-12-14] MEDS: PREGABALIN CAPSULE 75 MG CAP PO SCH (23:46)
[2017-12-14] MEDS: ASPirin-EC 81 mg tab PO SCH (23:46)
[2017-12-14] MEDS: METOPROLOL TARTRATE 50 MG TAB PO SCH (23:46)
[2017-12-14] MEDS: MORPHINE SULF 30 mg ER tab PO SCH (23:47)
[2017-12-14] MEDS: PRAVASTATIN SODIUM 20 MG TAB PO SCH (23:47)
[2017-12-15] VITALS (7 sets, daily range): BP systolic 107–144; BP diastolic 60–82
[2017-12-15] MEDS: metroNIDAZOLE 500MG/100ML 100 ML IV SCH ×4 (00:10→17:56)
[2017-12-15] MEDS: METOPROLOL TARTRATE 50 MG TAB PO SCH ×2 (00:46→22:01)
[2017-12-15] MEDS: OXYCODONE W/ ACETAMINOPHEN 5/325MG TABLET PO PRN ×3 (03:28→16:32)
[2017-12-15] MEDS: ACCU-CHEK COMFORT CURVE STRIP VI SCH ×4 (05:47→17:57)
[2017-12-15] MEDS: MORPHINE SULF 30 mg ER tab PO SCH ×3 (05:48→22:02)
[2017-12-15] MEDS: PANTOPRAZOLE 40 MG TAB PO SCH (05:51)
[2017-12-15] MEDS: FUROSEMIDE 40 MG TAB PO SCH ×2 (06:12→17:57)
[2017-12-15 08:02] LABS: Basophils # (auto) 0 uL; Basophils % (auto) 0.2 % (0.0-2.0); Eosinophils # (auto) 0 uL; Eosinophils % (auto) 0.1 % (0.0-7.0); Hematocrit 41.6 % (41.0-53.0); Hemoglobin 14.3 g/dL (13.5-17.5); Lymphocytes # (auto) 1.6 uL; Lymphocytes % (auto) 14.8 % (10.0-50.0); Mean Corpuscular Hemoglobin 29.9 pg (28.0-32.0); Mean Corpuscular Hgb Conc. 34.3 g/dL (32.0-36.0); Mean Corpuscular Volume 87.1 fL (80.0-100.0); Monocytes # (auto) 0.8 uL; Monocytes % (auto) 7.4 % (0.0-12.0); Neutrophils # (auto) 8.3 uL; Neutrophils % (auto) 77.5 % (37.0-80.0); Nucleated Red Blood Cells % 0.1 %; Red Blood Cells 4.78 10^6/uL (4.5-5.90); White Blood Cell 10.7 10^3/uL (4.4-10.8)
[2017-12-15 08:03] LABS: Platelet Count (auto) 202 10^3/uL (140-450); Red Cell Distribution Width 14.1 % (11.8-14.3)
[2017-12-15 08:12] LABS: Albumin 3.8 g/dL (3.4-5.0); Bilirubin, Total 0.7 mg/dL (0.2-1.0); Calcium 7.6 mg/dL (8.5-10.1); Potassium 3.6 mmol/L (3.5-5.1); Total Protein 6.7 g/dL (6.4-8.2)
[2017-12-15 08:14] LABS: Cholesterol 129 mg/dL (< 200); HDL Cholesterol 37 mg/dL (40-59); LDL Cholesterol 88 mg/dL (< 100); Triglycerides 89 mg/dL (< 150)
[2017-12-15 08:17] LABS: INR 1.32 (0.9-1.15); Prothrombin Time 13.9 sec (9.27-12.13)
[2017-12-15] MEDS: cefTRIAXone 1GM/10ml IVPUSH 10 ML IV SCH (09:43)
[2017-12-15] MEDS: ASPirin-EC 81 mg tab PO SCH ×2 (09:44→22:01)
[2017-12-15] MEDS: VORTIOXETINE 5 MG PO SCH (09:44)
[2017-12-15] MEDS: PREGABALIN CAPSULE 75 MG CAP PO SCH ×2 (09:45→22:17)
[2017-12-15] MEDS ORDERED: WARFARIN SODIUM 2.5 MG TAB PO ONE (17:00)
[2017-12-15] MEDS: PRAVASTATIN SODIUM 20 MG TAB PO SCH (22:01)
[2017-12-16] VITALS (7 sets, daily range): BP systolic 110–119; BP diastolic 71–86
[2017-12-16] MEDS: OXYCODONE W/ ACETAMINOPHEN 5/325MG TABLET PO PRN ×3 (03:27→18:41)
[2017-12-16] MEDS: ACCU-CHEK COMFORT CURVE STRIP VI SCH ×4 (06:00→17:42)
[2017-12-16] MEDS: metroNIDAZOLE 500MG/100ML 100 ML IV SCH ×4 (06:07→17:32)
[2017-12-16] MEDS: FUROSEMIDE 40 MG TAB PO SCH ×2 (06:08→17:32)
[2017-12-16] MEDS: MORPHINE SULF 30 mg ER tab PO SCH ×3 (06:08→21:40)
[2017-12-16 06:43] LABS: INR 1.58 (0.9-1.15); Partial Thromboplastin Time 35.2 sec (23.78-33.04); Prothrombin Time 16.5 sec (9.27-12.13)
[2017-12-16] MEDS: cefTRIAXone 1GM/10ml IVPUSH 10 ML IV SCH (09:04)
[2017-12-16] MEDS: ASPirin-EC 81 mg tab PO SCH ×2 (09:04→21:42)
[2017-12-16] MEDS: PANTOPRAZOLE 40 MG TAB PO SCH (09:05)
[2017-12-16] MEDS: PREGABALIN CAPSULE 75 MG CAP PO SCH ×2 (09:05→21:40)
[2017-12-16] MEDS: METOPROLOL TARTRATE 50 MG TAB PO SCH ×2 (09:06→21:42)
[2017-12-16] MEDS: VORTIOXETINE 5 MG PO SCH (09:06)
[2017-12-16] MEDS ORDERED: WARFARIN SODIUM 2 MG TAB PO ONE (17:00)
[2017-12-16] MEDS: PRAVASTATIN SODIUM 20 MG TAB PO SCH (21:42)
[2017-12-17] MEDS: OXYCODONE W/ ACETAMINOPHEN 5/325MG TABLET PO PRN ×2 (00:50→09:33)
[2017-12-17 05:42] VITALS: BP 152/81
[2017-12-17] MEDS: MORPHINE SULF 30 mg ER tab PO SCH (05:57)
[2017-12-17] MEDS: metroNIDAZOLE 500MG/100ML 100 ML IV SCH ×2 (05:57)
[2017-12-17] MEDS: FUROSEMIDE 40 MG TAB PO SCH (05:58)
[2017-12-17] MEDS: ACCU-CHEK COMFORT CURVE STRIP VI SCH ×2 (06:05)
[2017-12-17 07:18] LABS: INR 2.35 (0.9-1.15)
[2017-12-17 09:00] VITALS: BP 140/96
[2017-12-17] MEDS: cefTRIAXone 1GM/10ml IVPUSH 10 ML IV SCH (09:25)
[2017-12-17] MEDS: PREGABALIN CAPSULE 75 MG CAP PO SCH (09:26)
[2017-12-17] MEDS: PANTOPRAZOLE 40 MG TAB PO SCH (09:26)
[2017-12-17] MEDS: METOPROLOL TARTRATE 50 MG TAB PO SCH (09:27)
[2017-12-17] MEDS: ASPirin-EC 81 mg tab PO SCH (09:27)
[2017-12-17] MEDS: VORTIOXETINE 5 MG PO SCH (10:00)
[2017-12-17 11:06] VITALS: BP 121/73
[2017-12-17] MEDS ORDERED: WARFARIN SODIUM 2 MG TAB PO ONE (17:00)
== END 2017-12-17 15:35 | disposition home or self-care (01) | DRG 392 ==
LOC: EDBD 11:56 → ER 11:56 → TELE 11:57 → TELE-WESTW 23:40
PROVIDERS: ADMIT Internal Medicine; ATTEND Internal Medicine Pulmonary Disease
DX: K52.9 Noninfective gastroenteritis and colitis, unspecified (principal); E87.1 Hypo-osmolality and hyponatremia; M48.56XA Collapsed vertebra, not elsewhere classified, lumbar region, initial encounter for fracture; E87.6 Hypokalemia; E78.5 Hyperlipidemia, unspecified; K21.9 Gastro-esophageal reflux disease without esophagitis; I48.91 Unspecified atrial fibrillation; F20.9 Schizophrenia, unspecified; Z68.37 Body mass index [BMI] 37.0-37.9, adult; F31.9 Bipolar disorder, unspecified; G20 Parkinson's disease; E86.0 Dehydration; I10 Essential (primary) hypertension; G89.29 Other chronic pain; F41.9 Anxiety disorder, unspecified; E66.01 Morbid (severe) obesity due to excess calories; M54.9 Dorsalgia, unspecified; K57.90 Diverticulosis of intestine, part unspecified, without perforation or abscess without bleeding; R73.9 Hyperglycemia, unspecified; Z82.49 Family history of ischemic heart disease and other diseases of the circulatory system; Z88.5 Allergy status to narcotic agent
CPT/HCPCS: 36415; 80053; 80061; 81001; 82150; 82962; 83036; 83690; 84443; 85025; 85610; 85730; 87040; 87086; 93005; 96361; 96365; 96375; J0696; J2405; J3490

== ENCOUNTER 2018-01-02 14:40 | Emergency (ER) | payer MEDICARE, MEDICAID ==
[~2018-01-02] VITALS: Ht 182.9 cm; Wt 114.8 kg
[2018-01-02] MEDS ORDERED: ASPirin 81 mg TAB PO ONE (16:30)
[2018-01-02 16:31] LABS: Eosinophils # (auto) 0 uL; Lymphocytes # (auto) 1.2 uL; Monocytes # (auto) 0.4 uL
[2018-01-02 16:33] LABS: Basophils # (auto) 0.1 uL; Basophils % (auto) 0.8 % (0.0-2.0); Eosinophils % (auto) 0.5 % (0.0-7.0); Hematocrit 54.2 % (41.0-53.0); Hemoglobin 18.6 g/dL (13.5-17.5); Mean Corpuscular Hgb Conc. 34.3 g/dL (32.0-36.0); Mean Corpuscular Volume 87.4 fL (80.0-100.0); Monocytes % (auto) 5.9 % (0.0-12.0); Neutrophils # (auto) 4.7 uL; Neutrophils % (auto) 73.8 % (37.0-80.0); Nucleated Red Blood Cells % 0.1 %; Platelet Count (auto) 258 10^3/uL (140-450); Red Cell Distribution Width 13.7 % (11.8-14.3); White Blood Cell 6.4 10^3/uL (4.4-10.8)
[2018-01-02 16:47] LABS: Albumin 4.5 g/dL (3.4-5.0); Anion Gap 7 (5-15); BUN/Creatinine Ratio 19.7; Blood Urea Nitrogen 24 mg/dL (7-18); Calcium 9.2 mg/dL (8.5-10.1); Carbon Dioxide 26 mmol/L (21-32); Chloride 102 mmol/L (98-107); GFR African American 82 mL/min; GFR Non-African American 67 mL/min; Glucose 93 mg/dL (74-106); Potassium 4.3 mmol/L (3.5-5.1); Sodium 135 mmol/L (136-145)
[2018-01-02 16:57] LABS: Alanine Aminotransferase 51 U/L (16-61); Alkaline Phosphatase 82 U/L (45-117); Aspartate Aminotransferase 31 U/L (15-37); Bilirubin, Total 0.5 mg/dL (0.2-1.0); Total Protein 8.5 g/dL (6.4-8.2)
[2018-01-02] MEDS ORDERED: SODIUM CHLORIDE 0.9% 1,000 ML IV ONE (16:59)
[2018-01-02 18:00] VITALS: BP 140/82
== END 2018-01-02 18:02 | disposition home or self-care (01) ==
LOC: ER 14:40
DX: F41.9 Anxiety disorder, unspecified (principal); E86.0 Dehydration; K21.9 Gastro-esophageal reflux disease without esophagitis; E78.5 Hyperlipidemia, unspecified; I10 Essential (primary) hypertension; M54.9 Dorsalgia, unspecified; G89.29 Other chronic pain; F12.90 Cannabis use, unspecified, uncomplicated; F32.9 Major depressive disorder, single episode, unspecified; F20.9 Schizophrenia, unspecified; Z88.5 Allergy status to narcotic agent; Z79.01 Long term (current) use of anticoagulants; Z79.899 Other long term (current) drug therapy; Z79.82 Long term (current) use of aspirin
CPT/HCPCS: 36415; 71045; 80053; 82962; 84484; 85025; 96360

== ENCOUNTER 2018-02-01 11:21 | Emergency (ER) | payer MEDICARE, MEDICAID ==
[~2018-02-01] VITALS: Ht 182.9 cm; Wt 117.9 kg
[2018-02-01 11:55] VITALS: BP 144/79
[2018-02-01] MEDS ORDERED: IBUPROFEN 800 MG TAB PO ONE (12:45)
== END 2018-02-01 14:11 | disposition home or self-care (01) ==
LOC: ER 11:21
DX: S62.643A Nondisplaced fracture of proximal phalanx of left middle finger, initial encounter for closed fracture (principal); I10 Essential (primary) hypertension; E78.5 Hyperlipidemia, unspecified; K21.9 Gastro-esophageal reflux disease without esophagitis; F12.10 Cannabis abuse, uncomplicated; Z79.899 Other long term (current) drug therapy; Z88.6 Allergy status to analgesic agent; W22.8XXA Striking against or struck by other objects, initial encounter; Y93.89 Activity, other specified; Y99.8 Other external cause status; Y92.89 Other specified places as the place of occurrence of the external cause
CPT/HCPCS: 29125; 73130

== ENCOUNTER → 2018-09-29 | Outpatient (CLI) | payer MEDICARE, MEDICAID ==
[2018-10-02 18:49] LABS: Hepatitis B Surface Antigen Negative (Negative)
[2018-10-02 19:01] LABS: Hepatitis B Surface Antibody Positive
[2018-10-02 19:12] LABS: Hepatitis C Antibody Negative (Negative)
== END | disposition home or self-care (01) ==
LOC: LAB 09:45
PROVIDERS: ATTEND Nurse Practitioner Family
DX: Z11.3 Encounter for screening for infections with a predominantly sexual mode of transmission (principal); Z72.51 High risk heterosexual behavior; Z72.89 Other problems related to lifestyle; Z11.59 Encounter for screening for other viral diseases
CPT/HCPCS: 36415; 84403; 86706; 86803; 87340; 87591

== ENCOUNTER → 2019-01-18 | Outpatient (CLI) | payer MEDICAID ==
[2019-01-18 14:02] LABS: Albumin 3.8 g/dL (3.4-5.0)
[2019-01-18 14:06] LABS: Bilirubin, Direct 0.1 mg/dL (0-0.2); Bilirubin, Total 0.4 mg/dL (0.2-1.0); Total Protein 6.9 g/dL (6.4-8.2)
== END | disposition home or self-care (01) ==
LOC: LAB 13:29
PROVIDERS: ATTEND Urology
DX: E29.1 Testicular hypofunction (principal); N52.9 Male erectile dysfunction, unspecified; I25.10 Atherosclerotic heart disease of native coronary artery without angina pectoris; F20.9 Schizophrenia, unspecified; F31.9 Bipolar disorder, unspecified; F41.0 Panic disorder [episodic paroxysmal anxiety]; F41.9 Anxiety disorder, unspecified; K21.9 Gastro-esophageal reflux disease without esophagitis; I48.91 Unspecified atrial fibrillation; G20 Parkinson's disease; I10 Essential (primary) hypertension; E66.01 Morbid (severe) obesity due to excess calories; Z88.6 Allergy status to analgesic agent; Z88.5 Allergy status to narcotic agent; Z87.891 Personal history of nicotine dependence
CPT/HCPCS: 36415; 80076; 84153

== ENCOUNTER → 2019-02-16 | Outpatient (CLI) | payer MEDICARE, MEDICAID | END | disposition home or self-care (01) | LOC: XYW 08:31 | PROVIDERS: ATTEND Internal Medicine | DX: I48.91 Unspecified atrial fibrillation (principal); R53.1 Weakness; I07.1 Rheumatic tricuspid insufficiency | CPT/HCPCS: 93306 ==

== ENCOUNTER → 2019-03-06 | Outpatient (CLI) | payer MEDICARE, MEDICAID | END | disposition home or self-care (01) | LOC: XY 09:25 | PROVIDERS: ATTEND Internal Medicine Nephrology | DX: I73.9 Peripheral vascular disease, unspecified (principal); R20.0 Anesthesia of skin | CPT/HCPCS: 93926 ==

== ENCOUNTER → 2019-04-24 | Outpatient (CLI) | payer MEDICARE ==
[2019-04-24 13:04] LABS: Albumin 4.5 g/dL (3.4-5.0); Bilirubin, Direct 0.2 mg/dL (0-0.2)
[2019-04-24 13:07] LABS: Bilirubin, Total 0.7 mg/dL (0.2-1.0); Total Protein 8.3 g/dL (6.4-8.2)
== END | disposition home or self-care (01) ==
LOC: LAB 12:26
PROVIDERS: ATTEND Urology
DX: N40.0 Benign prostatic hyperplasia without lower urinary tract symptoms (principal)
CPT/HCPCS: 36415; 80076; 84153; 84403; 87086

== ENCOUNTER → 2019-10-15 | Outpatient (CLI) | payer MEDICARE, MEDICAID ==
[~2019-10-15] MED LIST changes: -FAM20T PO; +FAMO20TA10 PO
[2019-10-15 11:53] LABS: Basophils # (auto) 0 10 ^3/uL (0-0.2); Basophils % (auto) 0.6 % (0.0-2.0); Eosinophils # (auto) 0.1 10 ^3/uL (0-0.8); Eosinophils % (auto) 1.5 % (0.0-7.0); Hematocrit 49.4 % (41.0-53.0); Hemoglobin 16.6 g/dL (13.5-17.5); Lymphocytes # (auto) 1.5 10 ^3/uL (0.4-5.4); Mean Corpuscular Hemoglobin 30.5 pg (28.0-32.0); Mean Corpuscular Hgb Conc. 33.6 g/dL (32.0-36.0); Mean Corpuscular Volume 90.8 fL (80.0-100.0); Monocytes # (auto) 0.5 10 ^3/uL (0-1.3); Monocytes % (auto) 8.2 % (0.0-12.0); Neutrophils # (auto) 3.9 10 ^3/uL (1.6-8.6); Neutrophils % (auto) 64.7 % (37.0-80.0); Platelet Count (auto) 220 10^3/uL (140-450); Red Blood Cells 5.44 10^6/uL (4.5-5.90); Red Cell Distribution Width 13.9 % (11.8-14.3)
[2019-10-15 12:02] LABS: INR 2.16 (0.9-1.15); Partial Thromboplastin Time 38.7 sec (23.0-31.2)
[2019-10-15 12:04] LABS: Potassium 3.8 mmol/L (3.5-5.1)
[2019-10-15 12:13] LABS: Albumin 4.4 g/dL (3.4-5.0); BUN/Creatinine Ratio 28.4; Bilirubin, Total 0.9 mg/dL (0.2-1.0); Calcium 9.3 mg/dL (8.5-10.1); Total Protein 7.7 g/dL (6.4-8.2)
[2019-10-15 12:16] LABS: Urine Bacteria NONE SEEN /hpf (None Seen); Urine Blood Negative /uL (Negative); Urine Mucus FEW (None Seen); Urine Specific Gravity 1.036 (1.001-1.035); Urine WBC 1 /hpf (0 - 3)
[2019-10-15 12:42] LABS: Folate (Folic Acid) > 24.00 ng/mL (5.38-24); Prostate Specific Antigen 0.25 ng/mL (0.0-4.0)
[2019-10-15 12:46] LABS: Hepatitis B Surface Antibody Positive
[2019-10-15 13:23] LABS: Hepatitis A Total Antibody Positive
[2019-10-15 15:01] LABS: Hepatitis B Surface Antigen Negative (Negative); Hepatitis C Antibody Negative (Negative)
[2019-10-15 15:03] LABS: Hepatitis B Core Total AB Negative
== END | disposition home or self-care (01) ==
LOC: LAB 10:22
PROVIDERS: ATTEND Internal Medicine
DX: I48.91 Unspecified atrial fibrillation (principal); G89.4 Chronic pain syndrome; F31.31 Bipolar disorder, current episode depressed, mild; R10.9 Unspecified abdominal pain; N40.0 Benign prostatic hyperplasia without lower urinary tract symptoms; F20.9 Schizophrenia, unspecified; R53.1 Weakness; Z79.899 Other long term (current) drug therapy
CPT/HCPCS: 36415; 80053; 80061; 81001; 82306; 82607; 82746; 84153; 84403; 84443; 85025; 85610; 85730; 86703; 86704; 86706; 86708; 86803; 87340

== ENCOUNTER → 2020-04-21 | Outpatient (CLI) | payer MEDICARE, MEDICAID ==
[2020-04-21 13:45] LABS: Basophils # (auto) 0 10 ^3/uL (0-0.2); Basophils % (auto) 0.5 % (0.0-2.0); Eosinophils # (auto) 0 10 ^3/uL (0-0.8); Eosinophils % (auto) 0.8 % (0.0-7.0); Hemoglobin 15.2 g/dL (13.5-17.5); Lymphocytes # (auto) 1.2 10 ^3/uL (0.4-5.4); Lymphocytes % (auto) 21.5 % (10.0-50.0); Mean Corpuscular Hemoglobin 30.4 pg (28.0-32.0); Mean Corpuscular Hgb Conc. 34.4 g/dL (32.0-36.0); Mean Corpuscular Volume 88.1 fL (80.0-100.0); Monocytes # (auto) 0.4 10 ^3/uL (0-1.3); Monocytes % (auto) 7.5 % (0.0-12.0); Neutrophils # (auto) 3.8 10 ^3/uL (1.6-8.6); Neutrophils % (auto) 69.7 % (37.0-80.0); Nucleated Red Blood Cells % 0.2 %; Platelet Count (auto) 254 10^3/uL (140-450); Red Blood Cells 4.99 10^6/uL (4.5-5.90); Red Cell Distribution Width 13.1 % (11.8-14.3); White Blood Cell 5.5 10^3/uL (4.4-10.8)
[2020-04-21 14:30] LABS: Albumin 3.9 g/dL (3.4-5.0); Calcium 8.6 mg/dL (8.5-10.1); Potassium 4.2 mmol/L (3.5-5.1)
[2020-04-21 14:36] LABS: Bilirubin, Total 0.4 mg/dL (0.2-1.0); Total Protein 7.2 g/dL (6.4-8.2)
== END | disposition home or self-care (01) ==
LOC: LAB 13:22
PROVIDERS: ATTEND Internal Medicine
DX: I48.91 Unspecified atrial fibrillation (principal)
CPT/HCPCS: 36415; 80053; 85025

== ENCOUNTER → 2020-05-01 | Outpatient (CLI) | payer MEDICARE, MEDICAID ==
[2020-05-01 13:02] LABS: Urine Bacteria NONE SEEN /hpf (None Seen); Urine Blood Negative /uL (Negative); Urine Mucus FEW (None Seen); Urine Specific Gravity 1.024 (1.001-1.035); Urine WBC 3 /hpf (0 - 3)
== END | disposition home or self-care (01) ==
LOC: LAB 12:47
PROVIDERS: ATTEND Internal Medicine
DX: I48.91 Unspecified atrial fibrillation (principal)
CPT/HCPCS: 81001; 82274

== ENCOUNTER → 2020-10-23 | Outpatient (CLI) | payer MEDICARE, MEDICAID ==
[2020-10-23 12:28] LABS: Bilirubin, Direct 0.2 mg/dL (0-0.2); Bilirubin, Total 0.5 mg/dL (0.2-1.0); Total Protein 7.6 g/dL (6.4-8.2)
== END | disposition home or self-care (01) ==
LOC: LAB 11:37
PROVIDERS: ATTEND Urology
DX: N40.0 Benign prostatic hyperplasia without lower urinary tract symptoms (principal)
CPT/HCPCS: 36415; 80076; 84153; 84403

== ENCOUNTER → 2021-08-26 | Outpatient (CLI) | payer MEDICARE, MEDICAID ==
[~2021-08-26] MED LIST changes: -ASPI-231 PO; +ASPI1TAB20 PO
[2021-08-26 07:19] LABS: Basophils # (auto) 0 10 ^3/uL (0-0.2); Basophils % (auto) 0.7 % (0.0-2.0); Eosinophils # (auto) 0.2 10 ^3/uL (0-0.8); Eosinophils % (auto) 3.3 % (0.0-7.0); Hematocrit 39.1 % (41.0-53.0); Hemoglobin 13.6 g/dL (13.5-17.5); Lymphocytes % (auto) 18.9 % (10.0-50.0); Mean Corpuscular Hemoglobin 30.6 pg (28.0-32.0); Mean Corpuscular Hgb Conc. 34.8 g/dL (32.0-36.0); Mean Corpuscular Volume 87.9 fL (80.0-100.0); Monocytes # (auto) 0.6 10 ^3/uL (0-1.3); Monocytes % (auto) 10.3 % (0.0-12.0); Neutrophils # (auto) 3.6 10 ^3/uL (1.6-8.6); Neutrophils % (auto) 66.8 % (37.0-80.0); Nucleated Red Blood Cells % 0.2 %; Red Blood Cells 4.45 10^6/uL (4.5-5.90); Red Cell Distribution Width 13.5 % (11.8-14.3); White Blood Cell 5.4 10^3/uL (4.4-10.8)
[2021-08-26 07:25] LABS: Albumin 3.6 g/dL (3.4-5.0); Calcium 8.8 mg/dL (8.5-10.1); Potassium 4.5 mmol/L (3.5-5.1)
[2021-08-26 07:29] LABS: BUN/Creatinine Ratio 22.2; Bilirubin, Total 0.4 mg/dL (0.2-1.0); Total Protein 7.3 g/dL (6.4-8.2)
== END | disposition home or self-care (01) ==
LOC: LAB 06:35
PROVIDERS: ATTEND Student in an Organized Health Care Education/Training Program
DX: Z12.11 Encounter for screening for malignant neoplasm of colon (principal); Z13.6 Encounter for screening for cardiovascular disorders; I25.10 Atherosclerotic heart disease of native coronary artery without angina pectoris
CPT/HCPCS: 36415; 80053; 80061; 82274; 85025

== ENCOUNTER 2023-01-04 17:27 | Emergency (ER) | payer MEDICARE, MEDICAID ==
[~2023-01-04] VITALS: Ht 182.9 cm; Wt 107.9 kg
[~2023-01-04 17:27] MED LIST changes: -ACET-1156 PO; +ACET-1881 PO; -LURA40TA PO; +LURA40TA2 PO; -MORP1CAP31 PO; +MORP30CA31 PO; +WARF-66 PO; -WARF5TAB71 PO
[2023-01-04 17:40] VITALS: BP 130/88; PULSE 73; RESP 16; TEMP 98
[2023-01-04 20:33] VITALS: O2SAT 95
[2023-01-04] MEDS ORDERED: TETANUS-DIPTH-ACEL PERTUSSIS 0.5ML SYR Tdap IM ONE (21:45)
[2023-01-04] MEDS ORDERED: LIDOCAINE 1% HCL (LOCAL ANESTH.) INJ 20ML MDV ID ONE (21:45)
[2023-01-04] MEDS ORDERED: cefTRIAXone SOD 1,000 MG VL IM ONE (21:45)
[2023-01-04] MEDS ORDERED: CEPH500C PO (21:53)
== END 2023-01-04 23:05 | disposition home or self-care (01) ==
LOC: ER 17:27
DX: S61.213A Laceration without foreign body of left middle finger without damage to nail, initial encounter (principal); I10 Essential (primary) hypertension; E78.5 Hyperlipidemia, unspecified; K21.9 Gastro-esophageal reflux disease without esophagitis; F41.9 Anxiety disorder, unspecified; F32.9 Major depressive disorder, single episode, unspecified; F20.9 Schizophrenia, unspecified; F15.90 Other stimulant use, unspecified, uncomplicated; Z87.81 Personal history of (healed) traumatic fracture; Z98.890 Other specified postprocedural states; Z87.891 Personal history of nicotine dependence; Z88.8 Allergy status to other drugs, medicaments and biological substances; Z79.82 Long term (current) use of aspirin; Z79.899 Other long term (current) drug therapy; W45.8XXA Other foreign body or object entering through skin, initial encounter; Y93.89 Activity, other specified; Y92.89 Other specified places as the place of occurrence of the external cause; Y99.8 Other external cause status
CPT/HCPCS: 12002; 73140; 90471; 90715; 96372; 99284; J0696; J2001

== ENCOUNTER → 2023-06-01 | Outpatient (CLI) | payer MEDICARE, MEDICAID ==
[~2023-06-01] MED LIST changes: +CEPH500C PO
[2023-06-01 08:59] LABS: Alanine Aminotransferase 24 U/L (7-40); Albumin 4.9 g/dL (3.2-4.8); Alkaline Phosphatase 79 U/L (46-116); Anion Gap 9 (5-15); Aspartate Aminotransferase 26 U/L (13-40); Bilirubin, Total 0.5 mg/dL (0.2-1.0); Blood Urea Nitrogen 17 mg/dL (9-23); Calcium 9.8 mg/dL (8.5-10.1); Carbon Dioxide 24 mmol/L (20-30); Chloride 107 mmol/L (98-107); Cholesterol 192 mg/dL (< 200); Glucose 97 mg/dL (74-106); HDL Cholesterol 45 mg/dL (40-59); LDL Cholesterol 133 mg/dL (< 100); Potassium 4.3 mmol/L (3.5-5.1); Sodium 140 mmol/L (136-145); Total Protein 7.9 g/dL (5.7-8.2); Triglycerides 145 mg/dL (< 150)
[2023-06-02 16:04] LABS: Urine WBC None Seen /hpf (0 - 3)
[2023-06-02 16:36] LABS: Urine Bacteria NONE SEEN /hpf (None Seen); Urine Blood Negative /uL (Negative); Urine Clarity Clear (Clear); Urine Color Yellow (Yellow); Urine Protein, UAD Negative (Negative); Urine Specific Gravity 1.024 (1.001-1.035); Urine Urobilinogen Normal (Negative); Urine pH 6.5 (5.0-8.0)
== END | disposition home or self-care (01) ==
LOC: LAB 07:55
PROVIDERS: ATTEND Internal Medicine
DX: D68.69 Other thrombophilia (principal); I48.91 Unspecified atrial fibrillation; Z79.01 Long term (current) use of anticoagulants; Z79.899 Other long term (current) drug therapy
CPT/HCPCS: 36415; 80053; 80061; 81001; 82274; 82306; 84403; 84439; 84443

== ENCOUNTER 2023-10-22 13:02 | Inpatient (IN) | payer MEDICARE, MEDICAID ==
[~2023-10-22] VITALS: Ht 182.9 cm; Wt 98.9 kg
[~2023-10-22 13:02] MED LIST changes: -LUBI24CA6 PO; +LUBI24CA7 PO
[2023-10-22 13:30] VITALS: PULSE 101; RESP 15; O2SAT 94
[2023-10-22] MEDS: SODIUM CHLORIDE 0.9% 1,000 ML IVB ONE (13:38)
[2023-10-22 14:02] LABS: Basophils # (auto) 0 10 ^3/uL (0-0.2); Basophils % (auto) 0.4 % (0.0-2.0); Eosinophils # (auto) 0 10 ^3/uL (0-0.8); Eosinophils % (auto) 0.1 % (0.0-7.0); Hematocrit 43.6 % (41.0-53.0); Lymphocytes # (auto) 0.9 10 ^3/uL (0.4-5.4); Lymphocytes % (auto) 10.9 % (10.0-50.0); Mean Corpuscular Hgb Conc. 34.4 g/dL (32.0-36.0); Mean Corpuscular Volume 90.3 fL (80.0-100.0); Monocytes # (auto) 0.5 10 ^3/uL (0-1.3); Monocytes % (auto) 5.8 % (0.0-12.0); Neutrophils # (auto) 6.9 10 ^3/uL (1.6-8.6); Neutrophils % (auto) 82.8 % (37.0-80.0); Nucleated Red Blood Cells % 0.1 %; Platelet Count (auto) 251 10^3/uL (140-450); Red Blood Cells 4.82 10^6/uL (4.5-5.90); Red Cell Distribution Width 13.5 % (11.8-14.3); White Blood Cell 8.3 10^3/uL (4.4-10.8)
[2023-10-22] MEDS: SODIUM CHLORIDE 0.9% 1,000 ML IV ONE (14:25)
[2023-10-22 16:39] LABS: Alanine Aminotransferase 18 U/L (7-40); Albumin 4.7 g/dL (3.2-4.8); Alkaline Phosphatase 76 U/L (46-116); Anion Gap 11 (5-15); Aspartate Aminotransferase 15 U/L (13-40); BUN/Creatinine Ratio 15.2 (10.0-20.0); Bilirubin, Total 0.3 mg/dL (0.2-1.0); Blood Urea Nitrogen 15 mg/dL (9-23); Calcium 9.9 mg/dL (8.7-10.4); Carbon Dioxide 22 mmol/L (20-30); Chloride 114 mmol/L (98-107); Glucose 114 mg/dL (74-106); Potassium 4.1 mmol/L (3.5-5.1); Sodium 147 mmol/L (136-145); Total Protein 6.9 g/dL (5.7-8.2)
[2023-10-22 16:45] LABS: Urine Bacteria None Seen /hpf (None Seen)
[2023-10-22] MEDS ORDERED: ACETAMINOPHEN 325 MG TAB PO PRN ×2 (16:45→20:45)
[2023-10-22] MEDS ORDERED: ONDANSETRON HCL 4 MG/2 ML VIAL IV PRN (16:45)
[2023-10-22] MEDS ORDERED: DOCUSATE SOD 100 MG CAP PO PRN (16:45)
[2023-10-22] MEDS: LACTATED RINGER'S 1,000 ML IV ONE (17:03)
[2023-10-22 17:13] LABS: Amphetamine Screen, Urine Neg (NEGATIVE); Benzodiazephine Screen, Urine Neg (NEGATIVE)
[2023-10-22 17:14] LABS: Barbiturate Scree,Urine Neg (NEGATIVE); Cannabinoid Screen, Urine Pos (NEGATIVE); Cocaine Screen, Urine Neg (NEGATIVE); Opiate Scree,Urine Pos (NEGATIVE); Phencyclidine Screen, Urine Neg (NEGATIVE)
[2023-10-22 17:25] LABS: Urine Blood Negative /uL (Negative); Urine Clarity Clear (Clear); Urine Color Yellow (Yellow); Urine Mucus FEW (None Seen); Urine Protein, UAD TRACE (Negative); Urine Specific Gravity 1.024 (1.001-1.035); Urine Urobilinogen Normal (Negative); Urine WBC 1 /hpf (0 - 3)
[2023-10-22] MEDS: HALOPERIDOL LACTATE 5 MG/ML INJ VIAL IM ONE (17:40)
[2023-10-22 19:30] VITALS: PULSE 100; O2SAT 96
[2023-10-22] MEDS: QUEtiapine FUMARATE 25 MG TAB PO ONE (21:30)
[2023-10-22] MEDS: SODIUM CHLOR 0.9% PF (SALINE LOCK) 10ML VIAL/SYR IV SCH (22:19)
[2023-10-22] MEDS: HALOPERIDOL LACTATE 5 MG/ML INJ VIAL IM PRN (22:28)
[2023-10-22] MEDS: PREGABALIN CAPSULE 75 MG CAP PO SCH (22:30)
[2023-10-22] MEDS: FAMOTIDINE 20 MG TAB PO SCH (22:30)
[2023-10-22] MEDS: ASPirin-EC 81 mg tab PO SCH (22:33)
[2023-10-22] MEDS: METOPROLOL TARTRATE 25 MG TAB PO SCH (22:33)
[2023-10-22 22:50] LABS: INR 1.13 (0.9-1.15); Prothrombin Time 11.9 sec (9.3-11.8)
[2023-10-23] MEDS: BENZTROPINE MESY 0.5 MG TAB PO SCH (01:02)
[2023-10-23] MEDS ORDERED: LORazepam 2MG/ML-1ML VIAL IV PRN (03:00)
[2023-10-23] MEDS: FUROSEMIDE 40 MG TAB PO SCH (06:13)
[2023-10-23 08:00] VITALS: PULSE 87; RESP 15; O2SAT 95
[2023-10-23] MEDS: LUBIPROSTONE 24 MCG PO SCH (10:00)
[2023-10-23] MEDS: [UNRECOGNIZED DRUG - OTHER] PO SCH (10:00)
[2023-10-23] MEDS: ENOXAPARIN SOD 40 MG/0.4 ML SYRINGE SC SCH (10:15)
[2023-10-23 14:16] LABS: Basophils # (auto) 0.1 10 ^3/uL (0-0.2); Basophils % (auto) 0.8 % (0.0-2.0); Eosinophils # (auto) 0 10 ^3/uL (0-0.8); Eosinophils % (auto) 0.3 % (0.0-7.0); Hematocrit 44.3 % (41.0-53.0); Hemoglobin 15.4 g/dL (13.5-17.5); Lymphocytes # (auto) 1.7 10 ^3/uL (0.4-5.4); Mean Corpuscular Hemoglobin 31.5 pg (28.0-32.0); Mean Corpuscular Hgb Conc. 34.9 g/dL (32.0-36.0); Mean Corpuscular Volume 90.4 fL (80.0-100.0); Monocytes # (auto) 0.6 10 ^3/uL (0-1.3); Monocytes % (auto) 7.3 % (0.0-12.0); Neutrophils # (auto) 5.9 10 ^3/uL (1.6-8.6); Neutrophils % (auto) 70.6 % (37.0-80.0); Nucleated Red Blood Cells % 0.2 %; Platelet Count (auto) 258 10^3/uL (140-450); Red Cell Distribution Width 13.7 % (11.8-14.3); White Blood Cell 8.3 10^3/uL (4.4-10.8)
[2023-10-23 14:37] LABS: Alanine Aminotransferase 27 U/L (7-40); Albumin 4.7 g/dL (3.2-4.8); Alkaline Phosphatase 73 U/L (46-116); Anion Gap 8 (5-15); Aspartate Aminotransferase 42 U/L (13-40); BUN/Creatinine Ratio 12.6 (10.0-20.0); Bilirubin, Total 0.5 mg/dL (0.2-1.0); Blood Urea Nitrogen 12 mg/dL (9-23); Calcium 10.1 mg/dL (8.7-10.4); Carbon Dioxide 26 mmol/L (20-30); Chloride 108 mmol/L (98-107); Glucose 108 mg/dL (74-106); Potassium 3.6 mmol/L (3.5-5.1); Sodium 142 mmol/L (136-145); Total Protein 7.1 g/dL (5.7-8.2)
[2023-10-23] MEDS: WARFARIN SODIUM 5 MG TAB PO ONE (17:00)
[2023-10-23] MEDS: SODIUM CHLORIDE 0.9% 1,000 ML IV SCH (19:40)
[2023-10-23 19:48] LABS: Basophils # (auto) 0 10 ^3/uL (0-0.2); Basophils % (auto) 0.5 % (0.0-2.0); Eosinophils # (auto) 0 10 ^3/uL (0-0.8); Eosinophils % (auto) 0.6 % (0.0-7.0); Hemoglobin 15.2 g/dL (13.5-17.5); Lymphocytes # (auto) 1.7 10 ^3/uL (0.4-5.4); Lymphocytes % (auto) 19.6 % (10.0-50.0); Mean Corpuscular Hgb Conc. 34.5 g/dL (32.0-36.0); Monocytes # (auto) 0.7 10 ^3/uL (0-1.3); Monocytes % (auto) 7.8 % (0.0-12.0); Neutrophils # (auto) 6.2 10 ^3/uL (1.6-8.6); Neutrophils % (auto) 71.5 % (37.0-80.0); Nucleated Red Blood Cells % 0.1 %; Platelet Count (auto) 252 10^3/uL (140-450); Red Blood Cells 4.88 10^6/uL (4.5-5.90); Red Cell Distribution Width 13.5 % (11.8-14.3); White Blood Cell 8.7 10^3/uL (4.4-10.8)
[2023-10-23 19:52] LABS: COVID19 ANTIGEN SOFIA FIA NEGATIVE (NEGATIVE); Rapid Influenza A Negative (Negative); Rapid Influenza B Negative (Negative)
[2023-10-23 20:05] LABS: Alanine Aminotransferase 30 U/L (7-40); Albumin 4.6 g/dL (3.2-4.8); Alkaline Phosphatase 73 U/L (46-116); Anion Gap 8 (5-15); Aspartate Aminotransferase 40 U/L (13-40); BUN/Creatinine Ratio 15.7 (10.0-20.0); Blood Urea Nitrogen 17 mg/dL (9-23); Calcium 9.8 mg/dL (8.7-10.4); Carbon Dioxide 26 mmol/L (20-30); Chloride 109 mmol/L (98-107); Glucose 108 mg/dL (74-106); Potassium 3.6 mmol/L (3.5-5.1); Sodium 143 mmol/L (136-145)
[2023-10-23 20:06] LABS: Bilirubin, Total 0.4 mg/dL (0.2-1.0)
[2023-10-24] VITALS (8 sets, daily range): BP systolic 96–154; BP diastolic 59–75; PULSE 68–96; RESP 16–20; TEMP 97.6–98.2; O2SAT 95–97
[2023-10-24] MEDS ORDERED: SODIUM CHLORIDE 0.9% 1,000 ML IV SCH (01:30)
[2023-10-24] MEDS: HYDROmorphone HCL 2 MG/ML VL/or syr IV PRN (05:22)
[2023-10-24 06:31] LABS: INR 1.11 (0.9-1.15); Prothrombin Time 11.7 sec (9.3-11.8)
[2023-10-24] MEDS: HYDROcodone-ACET 5/325MG TAB PO PRN (14:58)
[2023-10-24] MEDS ORDERED: WARFARIN SODIUM 5 MG TAB PO ONE (17:00)
[2023-10-26 12:47] LABS: RPR Non Reactive (Non Reactive)
== END 2023-10-24 16:00 | disposition home or self-care (01) | DRG 922 ==
LOC: ER 13:02 → EDBD 13:02 → TELE 16:45 → TELE-WESTW 10-24 02:35
PROVIDERS: ADMIT Internal Medicine Pulmonary Disease; ATTEND Internal Medicine Pulmonary Disease
DX: T67.5XXA Heat exhaustion, unspecified, initial encounter (principal); G93.41 Metabolic encephalopathy; M62.82 Rhabdomyolysis; E86.0 Dehydration; I48.91 Unspecified atrial fibrillation; Z20.822 Contact with and (suspected) exposure to COVID-19; T40.711A Poisoning by cannabis, accidental (unintentional), initial encounter; I10 Essential (primary) hypertension; E78.5 Hyperlipidemia, unspecified; K21.9 Gastro-esophageal reflux disease without esophagitis; F20.9 Schizophrenia, unspecified; F41.9 Anxiety disorder, unspecified; F32.A Depression, unspecified; F12.10 Cannabis abuse, uncomplicated; F03.90 Unspecified dementia, unspecified severity, without behavioral disturbance, psychotic disturbance, mood disturbance, and anxiety; F17.200 Nicotine dependence, unspecified, uncomplicated; X30.XXXA Exposure to excessive natural heat, initial encounter; Z88.5 Allergy status to narcotic agent; Y93.89 Activity, other specified; Y92.89 Other specified places as the place of occurrence of the external cause; Y99.8 Other external cause status; Z59.11 Inadequate housing environmental temperature
CPT/HCPCS: 36415; 70450; 71045; 80053; 80307; 80320; 81001; 82553; 82607; 83735; 84439; 84443; 84484; 85025; 85610; 86592; 87426; 87804; 93005; 93306; 93886; 96360; 99291; G0378

== ENCOUNTER 2023-10-25 18:33 | Inpatient (IN) | payer MEDICARE, MEDICAID ==
[~2023-10-25] VITALS: Ht 182.9 cm; Wt 103.5 kg
[~2023-10-25 18:33] MED LIST changes: -CEPH500C PO
[2023-10-25] MEDS: SODIUM CHLORIDE 0.9% 1,000 ML IV ONE ×2 (19:02→20:11)
[2023-10-25] MEDS: ONDANSETRON HCL 4 MG/2 ML VIAL IV ONE (19:02)
[2023-10-25 19:28] LABS: Basophils # (auto) 0 10 ^3/uL (0-0.2); Basophils % (auto) 0.1 % (0.0-2.0); Eosinophils # (auto) 0 10 ^3/uL (0-0.8); Eosinophils % (auto) 0.5 % (0.0-7.0); Hematocrit 40.7 % (41.0-53.0); Hemoglobin 14.1 g/dL (13.5-17.5); Lymphocytes % (auto) 11.9 % (10.0-50.0); Mean Corpuscular Hemoglobin 31.2 pg (28.0-32.0); Mean Corpuscular Hgb Conc. 34.5 g/dL (32.0-36.0); Mean Corpuscular Volume 90.2 fL (80.0-100.0); Monocytes # (auto) 0.6 10 ^3/uL (0-1.3); Monocytes % (auto) 6.7 % (0.0-12.0); Neutrophils # (auto) 6.8 10 ^3/uL (1.6-8.6); Neutrophils % (auto) 80.8 % (37.0-80.0); Platelet Count (auto) 253 10^3/uL (140-450); Red Blood Cells 4.51 10^6/uL (4.5-5.90); Red Cell Distribution Width 13.2 % (11.8-14.3); White Blood Cell 8.5 10^3/uL (4.4-10.8)
[2023-10-25 19:30] VITALS: PULSE 45; RESP 9; O2SAT 90
[2023-10-25 19:47] LABS: Alanine Aminotransferase 32 U/L (7-40); Alkaline Phosphatase 60 U/L (46-116); Calcium 8.9 mg/dL (8.7-10.4); Carbon Dioxide 25 mmol/L (20-30); Chloride 112 mmol/L (98-107)
[2023-10-25 19:48] LABS: Albumin 4.2 g/dL (3.2-4.8); Anion Gap 4 (5-15); Aspartate Aminotransferase 24 U/L (13-40); BUN/Creatinine Ratio 15.9 (10.0-20.0); Bilirubin, Total 0.3 mg/dL (0.2-1.0); Blood Alcohol < 3.0 mg/dL (<10); Blood Urea Nitrogen 14 mg/dL (9-23); Glucose 126 mg/dL (74-106); Potassium 3.7 mmol/L (3.5-5.1); Sodium 141 mmol/L (136-145); Total Protein 6.2 g/dL (5.7-8.2)
[2023-10-25 20:03] LABS: Lipase 34 U/L (12-53)
[2023-10-25] MEDS: ATROPINE SULF 1 MG/10ml SYR IV ONE (20:11)
[2023-10-25] MEDS: AZITHROMYCIN 250 MG TAB PO ONE (20:45)
[2023-10-25] MEDS: VANCOMYCIN 1GM/200ML 200 ML IV ONE (21:17)
[2023-10-25] MEDS: CEFEPIME 2GM/50ML NS 50 ML IV ONE (21:18)
[2023-10-25] MEDS ORDERED: NITROGLYCERIN 0.4 MG SL TAB SL PRN (22:45)
[2023-10-25] MEDS ORDERED: ONDANSETRON HCL 4 MG/2 ML VIAL IV PRN (22:45)
[2023-10-25] MEDS ORDERED: MORPHINE SULFATE INJ 2 MG/ml SYRG IV PRN (22:45)
[2023-10-25 22:51] LABS: Urine Bacteria None Seen /hpf (None Seen)
[2023-10-25 22:58] LABS: Urine Blood Negative /uL (Negative); Urine Clarity Clear (Clear); Urine Color Yellow (Yellow); Urine Protein, UAD Negative (Negative); Urine Specific Gravity 1.018 (1.001-1.035); Urine Urobilinogen Normal (Negative); Urine WBC 1 /hpf (0 - 3); Urine pH 5.5 (5.0-9.0)
[2023-10-26 00:57] LABS: Amphetamine Screen, Urine Neg (NEGATIVE); Barbiturate Scree,Urine Neg (NEGATIVE); Benzodiazephine Screen, Urine Neg (NEGATIVE); Cannabinoid Screen, Urine Pos (NEGATIVE); Cocaine Screen, Urine Neg (NEGATIVE); Opiate Scree,Urine Pos (NEGATIVE); Phencyclidine Screen, Urine Neg (NEGATIVE)
[2023-10-26] MEDS: FUROSEMIDE 40 MG TAB PO SCH (05:54)
[2023-10-26 07:14] LABS: Basophils # (auto) 0 10 ^3/uL (0-0.2); Basophils % (auto) 0.2 % (0.0-2.0); Eosinophils # (auto) 0.1 10 ^3/uL (0-0.8); Eosinophils % (auto) 1.2 % (0.0-7.0); Hematocrit 42.1 % (41.0-53.0); Hemoglobin 14.6 g/dL (13.5-17.5); Lymphocytes # (auto) 1.2 10 ^3/uL (0.4-5.4); Lymphocytes % (auto) 11.8 % (10.0-50.0); Mean Corpuscular Hemoglobin 31.5 pg (28.0-32.0); Mean Corpuscular Hgb Conc. 34.7 g/dL (32.0-36.0); Mean Corpuscular Volume 90.7 fL (80.0-100.0); Monocytes # (auto) 0.6 10 ^3/uL (0-1.3); Monocytes % (auto) 6.2 % (0.0-12.0); Neutrophils # (auto) 8.2 10 ^3/uL (1.6-8.6); Neutrophils % (auto) 80.6 % (37.0-80.0); Platelet Count (auto) 253 10^3/uL (140-450); Red Blood Cells 4.64 10^6/uL (4.5-5.90); Red Cell Distribution Width 13.5 % (11.8-14.3); White Blood Cell 10.2 10^3/uL (4.4-10.8)
[2023-10-26 07:40] VITALS: PULSE 62; RESP 13; O2SAT 99
[2023-10-26 07:44] LABS: Alanine Aminotransferase 31 U/L (7-40); Albumin 4.1 g/dL (3.2-4.8); Alkaline Phosphatase 65 U/L (46-116); Anion Gap 3 (5-15); Aspartate Aminotransferase 26 U/L (13-40); BUN/Creatinine Ratio 12.2 (10.0-20.0); Blood Urea Nitrogen 10 mg/dL (9-23); Calcium 9.2 mg/dL (8.7-10.4); Carbon Dioxide 25 mmol/L (20-30); Chloride 113 mmol/L (98-107); Glucose 104 mg/dL (74-106); Potassium 3.8 mmol/L (3.5-5.1); Sodium 141 mmol/L (136-145)
[2023-10-26 07:45] LABS: Bilirubin, Total 0.2 mg/dL (0.2-1.0); Total Protein 6.5 g/dL (5.7-8.2)
[2023-10-26 08:06] LABS: INR 1.04 (0.9-1.15); Partial Thromboplastin Time 29.9 SEC (24.5-34.5)
[2023-10-26] MEDS: cefTRIAXone 1GM/50ML D5W 50 ML IV SCH (09:32)
[2023-10-26] MEDS: AZITHROMYCIN 500MG/ 250ML 250 ML IV STA (09:39)
[2023-10-26] MEDS ORDERED: PREG150C63 PO (10:49)
[2023-10-26] MEDS ORDERED: LUBI24CA12 PO (10:49)
[2023-10-26] MEDS ORDERED: BENZ1TAB6 PO (10:49)
[2023-10-26] MEDS ORDERED: BREX1TAB6 PO (10:49)
[2023-10-26] MEDS ORDERED: APIX5TAB PO (10:49)
[2023-10-26] MEDS ORDERED: SERT-160 PO (10:49)
[2023-10-26] MEDS ORDERED: MORP30TA5 PO (10:49)
[2023-10-26 12:00] VITALS: PULSE 64; RESP 20; O2SAT 98
[2023-10-26 13:01] VITALS: BP 112/71; PULSE 64; RESP 20; TEMP 97.7; O2SAT 98
[2023-10-26] MEDS ORDERED: ACETAMINOPHEN PO PRN (16:15)
[2023-10-26] MEDS ORDERED: OXYCODONE PO PRN (16:15)
[2023-10-26 16:43] LABS: Triglycerides 160 mg/dL (< 150)
[2023-10-26 16:44] LABS: LDL Cholesterol 103 mg/dL (< 100)
[2023-10-26 16:45] LABS: Cholesterol 151 mg/dL (< 200); HDL Cholesterol 33 mg/dL (40-59)
[2023-10-26 16:54] VITALS: BP 119/77; PULSE 74; RESP 20; TEMP 97.9; O2SAT 97
[2023-10-26 20:00] VITALS: PULSE 77
[2023-10-26 20:46] LABS: COVID19 ANTIGEN SOFIA FIA NEGATIVE (NEGATIVE)
[2023-10-26 20:47] LABS: Rapid Influenza A Negative (Negative); Rapid Influenza B Negative (Negative)
[2023-10-26 21:00] VITALS: BP 122/70; PULSE 84; RESP 20; TEMP 98; O2SAT 95
[2023-10-26] MEDS: APIXABAN 5 MG TAB PO SCH (22:24)
[2023-10-26] MEDS: ATORVASTATIN 20 MG TAB PO SCH (22:24)
[2023-10-26] MEDS: HYDROcodone-ACET 5/325MG TAB PO PRN (22:31)
[2023-10-27] VITALS (8 sets, daily range): BP systolic 116–136; BP diastolic 63–86; PULSE 80–95; RESP 18–20; TEMP 97.6–98.5; O2SAT 95–99
[2023-10-27 07:33] LABS: Basophils # (auto) 0 10 ^3/uL (0-0.2); Basophils % (auto) 0.5 % (0.0-2.0); Eosinophils # (auto) 0.1 10 ^3/uL (0-0.8); Eosinophils % (auto) 1.2 % (0.0-7.0); Hematocrit 38.6 % (41.0-53.0); Hemoglobin 13.8 g/dL (13.5-17.5); Lymphocytes # (auto) 1.3 10 ^3/uL (0.4-5.4); Lymphocytes % (auto) 17.3 % (10.0-50.0); Mean Corpuscular Hemoglobin 31.8 pg (28.0-32.0); Mean Corpuscular Hgb Conc. 35.7 g/dL (32.0-36.0); Mean Corpuscular Volume 89.2 fL (80.0-100.0); Monocytes # (auto) 0.5 10 ^3/uL (0-1.3); Monocytes % (auto) 7.2 % (0.0-12.0); Neutrophils # (auto) 5.4 10 ^3/uL (1.6-8.6); Neutrophils % (auto) 73.8 % (37.0-80.0); Platelet Count (auto) 212 10^3/uL (140-450); Red Blood Cells 4.33 10^6/uL (4.5-5.90); Red Cell Distribution Width 13.4 % (11.8-14.3); White Blood Cell 7.3 10^3/uL (4.4-10.8)
[2023-10-27 07:45] LABS: Alanine Aminotransferase 42 U/L (7-40); Albumin 4.1 g/dL (3.2-4.8); Alkaline Phosphatase 66 U/L (46-116); Anion Gap 2 (5-15); Aspartate Aminotransferase 96 U/L (13-40); BUN/Creatinine Ratio 7.4 (10.0-20.0); Blood Urea Nitrogen 7 mg/dL (9-23); Calcium 9.2 mg/dL (8.7-10.4); Carbon Dioxide 28 mmol/L (20-30); Chloride 112 mmol/L (98-107); Glucose 100 mg/dL (74-106); Potassium 3.5 mmol/L (3.5-5.1); Sodium 142 mmol/L (136-145)
[2023-10-27 07:46] LABS: Bilirubin, Total 0.5 mg/dL (0.2-1.0); Total Protein 6.3 g/dL (5.7-8.2)
[2023-10-27] MEDS: AZITHROMYCIN 500MG/ 250ML 250 ML IV SCH (09:37)
[2023-10-27] MEDS: ACETAMINOPHEN 325 MG TAB PO PRN (10:51)
[2023-10-27] MEDS: oxyCODONE ER 10 MG TAB PO PRN (10:52)
[2023-10-27] MEDS ORDERED: oxyCODONE ER 10 MG TAB PO SCH (12:00)
[2023-10-27] MEDS: MORPHINE SULFATE INJ 2 MG/ml SYRG IV PRN (14:24)
[2023-10-28 01:00] VITALS: BP 115/82; PULSE 82; RESP 20; TEMP 98; O2SAT 95
[2023-10-28 05:00] VITALS: BP 113/74; PULSE 82; RESP 20; TEMP 98.3; O2SAT 96
[2023-10-28 06:32] LABS: Basophils # (auto) 0 10 ^3/uL (0-0.2); Basophils % (auto) 0.5 % (0.0-2.0); Eosinophils # (auto) 0.1 10 ^3/uL (0-0.8); Hematocrit 41.1 % (41.0-53.0); Hemoglobin 14.1 g/dL (13.5-17.5); Lymphocytes # (auto) 1.2 10 ^3/uL (0.4-5.4); Lymphocytes % (auto) 20.9 % (10.0-50.0); Mean Corpuscular Hemoglobin 31.3 pg (28.0-32.0); Mean Corpuscular Hgb Conc. 34.2 g/dL (32.0-36.0); Mean Corpuscular Volume 91.3 fL (80.0-100.0); Monocytes # (auto) 0.5 10 ^3/uL (0-1.3); Monocytes % (auto) 9.1 % (0.0-12.0); Neutrophils # (auto) 3.9 10 ^3/uL (1.6-8.6); Neutrophils % (auto) 67.5 % (37.0-80.0); Nucleated Red Blood Cells % 0.1 %; Platelet Count (auto) 212 10^3/uL (140-450); Red Cell Distribution Width 13.5 % (11.8-14.3); White Blood Cell 5.7 10^3/uL (4.4-10.8)
[2023-10-28 06:38] LABS: Chloride 112 mmol/L (98-107); Potassium 3.7 mmol/L (3.5-5.1); Sodium 143 mmol/L (136-145)
[2023-10-28 06:39] LABS: Anion Gap 7 (5-15); Carbon Dioxide 24 mmol/L (20-30)
[2023-10-28 06:40] LABS: Calcium 9.1 mg/dL (8.7-10.4)
[2023-10-28 06:44] LABS: Glucose 99 mg/dL (74-106)
[2023-10-28 06:45] LABS: BUN/Creatinine Ratio 8.4 (10.0-20.0); Blood Urea Nitrogen 7 mg/dL (9-23)
[2023-10-28 08:00] VITALS: PULSE 100; PULSE 85; RESP 19; O2SAT 98
[2023-10-28 08:43] VITALS: BP 128/83; PULSE 85; RESP 19; TEMP 97.6; O2SAT 98
[2023-10-28] MEDS: SERTRALINE HCL 50 MG TAB PO SCH (09:44)
[2023-10-28] MEDS: BENZTROPINE MESY 0.5 MG TAB PO SCH (09:44)
[2023-10-28] MEDS: PREGABALIN CAPSULE 75 MG CAP PO SCH (09:44)
[2023-10-28 12:32] VITALS: BP 128/84; PULSE 87; RESP 17; TEMP 98; O2SAT 98
[2023-10-28] MEDS ORDERED: AZITTAB PO (12:46)
[2023-10-28] MEDS ORDERED: CEPH250C PO (12:46)
[2023-10-28 12:52] VITALS: BP 128/84; PULSE 87; RESP 17; TEMP 98; O2SAT 98
== END 2023-10-28 15:00 | disposition home or self-care (01) | DRG 177 ==
LOC: EDBD 18:33 → ER 18:33 → TELE 22:48 → TELE-WESTW 10-26 11:45
PROVIDERS: ADMIT Internal Medicine Pulmonary Disease; ATTEND Internal Medicine Pulmonary Disease
DX: J15.69 Pneumonia due to other Gram-negative bacteria (principal); G92.8 Other toxic encephalopathy; J96.01 Acute respiratory failure with hypoxia; D68.9 Coagulation defect, unspecified; I48.19 Other persistent atrial fibrillation; K21.9 Gastro-esophageal reflux disease without esophagitis; F25.0 Schizoaffective disorder, bipolar type; E78.5 Hyperlipidemia, unspecified; T50.995A Adverse effect of other drugs, medicaments and biological substances, initial encounter; J15.9 Unspecified bacterial pneumonia; Y92.89 Other specified places as the place of occurrence of the external cause; Z79.899 Other long term (current) drug therapy
CPT/HCPCS: 36415; 70450; 71045; 80048; 80053; 80061; 80307; 80320; 81001; 83036; 83605; 83690; 83880; 84443; 84484; 85025; 85610; 85730; 87081; 87426; 87804; 93005; 96361; 96365; 96366; 96368; 96375; G0378; J0692; J2405

== ENCOUNTER → 2024-02-21 | Outpatient (CLI) | payer MEDICARE, MEDICAID ==
[~2024-02-21] MED LIST changes: +APIX5TAB PO; +AZITTAB PO; +BENZ1TAB6 PO; +BREX1TAB6 PO; +CEPH250C PO; +LUBI24CA12 PO; +MORP30TA5 PO; +PREG150C63 PO; +SERT-160 PO
[2024-02-21 14:04] LABS: % Iron Saturation 33.4 % (20-55)
== END | disposition home or self-care (01) ==
LOC: LAB 13:01
PROVIDERS: ATTEND Psychiatry & Neurology Neurology
DX: E61.1 Iron deficiency (principal)
CPT/HCPCS: 82728; 83540; 83550

== ENCOUNTER 2024-09-18 15:07 | Outpatient (CLI) | payer MEDICARE, MEDICAID ==
[2024-09-18 15:22] LABS: Hematocrit 43.7 % (41.0-53.0); Hemoglobin 14.7 g/dL (13.5-17.5); Mean Corpuscular Hemoglobin 29.2 pg (28.0-32.0); Mean Corpuscular Volume 86.5 fL (80.0-100.0); Nucleated Red Blood Cells % 0.0 %
[2024-09-18 15:43] LABS: Alanine Aminotransferase 23 U/L (7-40); Albumin 4.4 g/dL (3.2-4.8); Alkaline Phosphatase 90 U/L (46-116); Anion Gap 4 (5-15); BUN/Creatinine Ratio 11.6 (10.0-20.0); Blood Urea Nitrogen 13 mg/dL (9-23); Calcium 9.6 mg/dL (8.7-10.4); Carbon Dioxide 30 mmol/L (20-31); Chloride 108 mmol/L (98-107); Glucose 79 mg/dL (74-106); HDL Cholesterol 47 mg/dL (40-59); Potassium 4.5 mmol/L (3.5-5.1); Sodium 142 mmol/L (136-145); Total Protein 6.7 g/dL (5.7-8.2); Triglycerides 243 mg/dL (< 150)
[2024-09-18 15:44] LABS: Cholesterol 212 mg/dL (< 200)
[2024-09-18 15:50] LABS: Bilirubin, Total 0.2 mg/dL (0.2-1.0)
== END 2024-09-18 17:55 | disposition home or self-care (01) ==
LOC: LAB 15:07
PROVIDERS: ATTEND Licensed Practical Nurse
DX: I11.0 Hypertensive heart disease with heart failure (principal); I50.21 Acute systolic (congestive) heart failure; E78.5 Hyperlipidemia, unspecified; F32.A Depression, unspecified; Z79.899 Other long term (current) drug therapy
CPT/HCPCS: 36415; 80053; 80061; 82306; 85025

== ENCOUNTER 2024-09-27 12:48 | Outpatient (CLI) | payer MEDICARE, MEDICAID ==
[2024-09-27 13:08] LABS: Hematocrit 49.0 % (41.0-53.0); Hemoglobin 16.5 g/dL (13.5-17.5); Mean Corpuscular Hemoglobin 29.2 pg (28.0-32.0); Mean Corpuscular Volume 86.6 fL (80.0-100.0); Nucleated Red Blood Cells % 0.2 %
[2024-09-27 13:40] LABS: Prostate Specific Antigen 0.25 ng/mL (0.0-4.0)
[2024-09-27 13:41] LABS: Alanine Aminotransferase 22 U/L (7-40); Alkaline Phosphatase 110 U/L (46-116); Anion Gap 5 (5-15); BUN/Creatinine Ratio 10.9 (10.0-20.0); Blood Urea Nitrogen 13 mg/dL (9-23); Calcium 9.6 mg/dL (8.7-10.4); Carbon Dioxide 29 mmol/L (20-31); Chloride 104 mmol/L (98-107); Glucose 85 mg/dL (74-106); Potassium 5.0 mmol/L (3.5-5.1); Sodium 138 mmol/L (136-145); Total Protein 7.6 g/dL (5.7-8.2)
[2024-09-27 13:42] LABS: Albumin 5.0 g/dL (3.2-4.8); Bilirubin, Total 0.3 mg/dL (0.2-1.0)
[2024-09-27 13:44] LABS: Carcinoembryonic Antigen 1.91 ng/mL (<=5.0)
== END 2024-09-27 17:00 | disposition home or self-care (01) ==
LOC: LAB 12:48
PROVIDERS: ATTEND Internal Medicine
DX: E78.5 Hyperlipidemia, unspecified (principal); Z12.11 Encounter for screening for malignant neoplasm of colon; R91.1 Solitary pulmonary nodule; Z79.899 Other long term (current) drug therapy
CPT/HCPCS: 36415; 80053; 82043; 82274; 82378; 83036; 84153; 84403; 84443; 85025; 86301

== ENCOUNTER → 2024-10-30 | Outpatient (CLI) | payer MEDICARE, MEDICAID ==
[2024-10-30 13:46] LABS: Alanine Aminotransferase 18 U/L (7-40); Albumin 4.7 g/dL (3.2-4.8); Alkaline Phosphatase 89 U/L (46-116); Anion Gap 4 (5-15); BUN/Creatinine Ratio 23.1 (10.0-20.0); Bilirubin, Total 0.4 mg/dL (0.2-1.0); Blood Urea Nitrogen 21 mg/dL (9-23); Calcium 9.0 mg/dL (8.7-10.4); Carbon Dioxide 27 mmol/L (20-31); Chloride 108 mmol/L (98-107); Glucose 98 mg/dL (74-106); Potassium 4.2 mmol/L (3.5-5.1); Sodium 139 mmol/L (136-145); Total Protein 7.2 g/dL (5.7-8.2)
== END | disposition home or self-care (01) ==
LOC: LAB 13:01
PROVIDERS: ATTEND Internal Medicine
DX: I10 Essential (primary) hypertension (principal)
CPT/HCPCS: 36415; 80053

== ENCOUNTER 2025-01-14 07:39 | Outpatient (CLI) | payer MEDICARE, MEDICAID ==
[2025-01-14 08:12] LABS: Hematocrit 44.7 % (41.0-53.0); Hemoglobin 15.3 g/dL (13.5-17.5); Mean Corpuscular Hemoglobin 29.8 pg (28.0-32.0); Mean Corpuscular Volume 87.0 fL (80.0-100.0); Nucleated Red Blood Cells % 0.1 %
[2025-01-14 09:25] LABS: Alanine Aminotransferase 27 U/L (7-40); Albumin 4.7 g/dL (3.2-4.8); Anion Gap 8 (5-15); BUN/Creatinine Ratio 16.5 (10.0-20.0); Blood Urea Nitrogen 19 mg/dL (9-23); Calcium 9.3 mg/dL (8.7-10.4); Carbon Dioxide 27 mmol/L (20-31); Glucose 101 mg/dL (74-106); Potassium 4.5 mmol/L (3.5-5.1); Sodium 143 mmol/L (136-145); Total Protein 7.6 g/dL (5.7-8.2); Triglycerides 102 mg/dL (< 150)
[2025-01-14 09:26] LABS: Bilirubin, Total 0.6 mg/dL (0.2-1.0); Cholesterol 136 mg/dL (< 200); HDL Cholesterol 55 mg/dL (40-59)
[2025-01-14 09:29] LABS: Alkaline Phosphatase 118 U/L (46-116); Chloride 108 mmol/L (98-107)
== END 2025-01-14 17:00 | disposition home or self-care (01) ==
LOC: LAB 07:39
PROVIDERS: ATTEND Internal Medicine
DX: I11.0 Hypertensive heart disease with heart failure (principal); I50.9 Heart failure, unspecified; E78.5 Hyperlipidemia, unspecified; Z79.899 Other long term (current) drug therapy
CPT/HCPCS: 36415; 80053; 80061; 83036; 84403; 85025

== ENCOUNTER → 2025-01-23 | Outpatient (CLI) | payer MEDICARE, MEDICAID | END | disposition home or self-care (01) | LOC: LAB 15:48 | PROVIDERS: ATTEND Internal Medicine | DX: I11.0 Hypertensive heart disease with heart failure (principal); I50.9 Heart failure, unspecified; E78.5 Hyperlipidemia, unspecified | CPT/HCPCS: 82043 ==

== ENCOUNTER 2025-01-24 14:59 | Outpatient (CLI) | payer MEDICARE, MEDICAID ==
--- NOTE | 2025-02-06 14:38 | DVHSR ---
APPROVED REPORT EXAM: Two-dimensional and M-mode echocardiogram with Doppler and color Doppler. INDICATION Pre-Op RISK FACTORS Obesity: Height: 72, Weight: 263 DIMENSIONS LVDd (3.8-5.7cm) LA (2D) 3.9 (1.9-4.0cm) Aortic Root 3.6 (2.0-3.7cm) LVDs (2.5-4.0cm) LA (MM) (1.9-4.0cm) Aortic Cusp Exc 2.1 (1.5-2.0cm) EF (%) 50.0 (55-70%) Rt. Atrium (1.9-4.0cm) Asc. Aorta cm Mitral Valve Mitral Mitral Stenosis E wave 0.87m/s MV Mean GR. mmHg E/A ratio 0.0 2D MVA cm2 Aortic Valve Aortic Valve Aortic Stenosis V1 0.79m/s AO Mean GR. 2mmHg V2 0.93m/s AO Peak GR. 3mmHg LVOT Diameter 2.2 (1.8-2.4cm) Doppler TITO 3.23cm2 Pulmonic Valve V2 0.97m/s Tricuspid Valve RVSP 8mmHg Other Information Technically limited study due to body habitus. Conclusion Technically good study sinus rhythm. Normal chamber sizes. Valves are normal. EF of 60% with normal RV function. Dopplers unremarkable. No pericardial effusion masses or vegetations.
== END 2025-01-24 17:00 | disposition home or self-care (01) ==
LOC: XYW 14:59
PROVIDERS: ATTEND Internal Medicine
DX: Z01.810 Encounter for preprocedural cardiovascular examination (principal); I11.0 Hypertensive heart disease with heart failure; I50.9 Heart failure, unspecified
CPT/HCPCS: 93306

== ENCOUNTER 2025-02-19 13:04 | Inpatient (IN) | payer MEDICARE, MEDICAID ==
[~2025-02-19] VITALS: Ht 182.9 cm; Wt 113.0 kg
[2025-02-19] MEDS: SODIUM CHLORIDE 0.9% 1,000 ML IV ONE ×2 (14:15→18:05)
--- NOTE | 2025-02-19 14:15 | ED.PDOC ---
HPI (NEURO) HPI Comments 55-year-old male who presents to the ED via EMS chief complaint of generalized weakness. Patient stated that he has been having weakness and dizziness with the past two days. Patient states that he has been having associated shortness of breath and states he gets short of breath and winded when attempting to ambulate during this time. Patient in the ED otherwise has a above vitals including O2 saturation of 97% on room air. Patient otherwise denies any recent sick contacts. Patient denies any other symptoms at this time. Chief Complaint: General Weakness Time Seen by MD: 14:13 Primary Care Provider: CARMEN Reviewed Notes: Medications, Allergies Information Source: Patient, Emergency Med Personnel Mode of Arrival: Wheelchair Brought in by: AMS Severity: Moderate Dizziness/Weakness Severity: Does not affect activitie Past Medical History PAST MEDICAL HISTORY: Anxiety, Depression, GERD, High Lipids, HTN, Schizophrenia Surgical History: Unknown, Unobtainable Family History Family History: Unknown, Unobtainable Social History Smoker: Other Alcohol: Rarely Drugs: Marijuana Lives In: Home Constitutional: reports: malaise, weakness; denies: chills, diaphoresis, fatigue, fever, sweats, others EENTM: denies: blurred vision, double vision, ear bleeding, ear discharge, ear drainage, ear pain, ear ringing, eye pain, eye redness, hearing loss, mouth pain, mouth swelling, nasal discharge, nose bleeding, nose congestion, nose pain, photophobia, tearing, throat pain, throat swelling, voice changes, others Respiratory: reports: shortness of breath; denies: cough, hemoptysis, orthopnea, SOB at rest, SOB with excertion, stridor, wheezing, others Cardiovascular: denies: chest pain, dizzy spells, diaphoresis, Dyspnea on exertion, edema, irregular heart beat, left arm pain, lightheadedness, palpitations, PND, syncope, others Gastrointestinal: denies: abdomen distended, abdominal pain, blood streaked bowels, constipated, diarrhea, dysphagia, difficulty swallowing, hematemesis, melena, nausea, poor appetite, poor fluid intake, rectal bleeding, rectal pain, vomiting, others Genitourinary: denies: burning, dysuria, flank pain, frequency, hematuria, incontinence, penile discharge, penile sore, pain, testicle pain, testicle swelling, urgency, others Neurological: denies: dizziness, fainting, headache, left sided numbness, left sided weakness, numbness, paresthesia, pre-existing deficit, right sided numbness, right sided weakness, seizure, speech problems, tingling, tremors, weakness, others Musculoskeletal: denies: back pain, gout, joint pain, joint swelling, muscle pain, muscle stiffness, neck pain, others Integumetry: denies: bruises, change in color, change in hair/nails, dryness, laceration, lesions, lumps, rash, wounds, others Allergic/Immunocompromised: denies: Difficulty Healing, Frequent Infections, Hives, Itching, others Hematologic/Lymphatic: denies: anemia, blood clots, easy bleeding, easy bruising, swollen glands, others Endocrine: denies: excessive hunger, excessive sweating, excessive thirst, excessive urination, flushing, intolerance to cold, intolerance to heat, unexplained weight gain, unexplained weight loss, others Psychiatric: denies: anxiety, bipolar disorder, depression, hopeless, panic disorder, schizophrenia, sleepless, suicidal, others All Other Systems: Reviewed and Negative Physical Exam General Appearance: No Apparent Distress, Normal HEENT: Normal ENT Inspection, Pharynx Normal, TMs Normal Neck: Full Range of Motion, Non-Tender, Normal, Normal Inspection Respiratory: Chest Non-Tender, Lungs Clear, No Accessory Muscle Use, No Respiratory Distress, Normal Breath Sounds Cardiovascular: No Edema, No JVD, No Murmur, No Gallop, Normal Peripheral Pulses, Regular Rate/Rhythm Breast Exam: Deferred Gastrointestinal: No Organomegaly, Non Tender, No Pulsatile Mass, Normal Bowel Sounds, Soft Genitalia: Deferred Pelvic: Deferred Rectal: Deferred Extremities: No calf tenderness, Normal capillary refill, Normal inspection, Normal range of motion, Non-tender, No pedal edema Musculoskeletal : Apperance: Normal Neurologic: Alert, audiometrist II-XII nml as Tested, No Motor Deficits, Normal Affect, Normal Mood, No Sensory Deficits Cerebellar Function: Normal Reflexes: Normal Skin: Dry, Normal Color, Warm Lymphatic: No Adenopathy Was a procedure done? Was a procedure done?: No Differential Diagnosis (SZ) General Weakness: Anemia, Dehydration, Electrolyte imbalance, Hypoglycemia, TIA, Vertigo: central, Vertigo: peripheral X-Ray, Labs, Meds, VS Vital Signs Date Time Temp Pulse Resp B/P (MAP) Pulse Ox O2 Delivery O2 Flow Rate FiO2 02/19/25 18:37 91 13 121/73 (89) 100 02/19/25 17:22 83 14 100 Nasal Cannula* 2 28 02/19/25 17:22 97.5 83 14 139/80 (99) 100 97.5 02/19/25 13:08 87 02/19/25 13:06 98.1 85 20 145/95 97 98.1 Lab Test 02/19/25 18:48 02/19/25 17:09 02/19/25 15:00 Range/Units Troponin I High Sensitivity Pending < 3 L < 3 L </=54 ng/L White Blood Count 4.4 4.4-10.8 10^3/uL Red Blood Count 5.50 4.5-5.90 10^6/uL Hemoglobin 16.6 13.5-17.5 g/dL Hematocrit 47.8 41.0-53.0 % Mean Corpuscular Volume 86.9 80.0-100.0 fL Mean Corpuscular Hemoglobin 30.2 28.0-32.0 pg Mean Corpuscular Hemoglobin Concent 34.8 32.0-36.0 g/dL Red Cell Distribution Width 14.1 11.8-14.3 % Platelet Count 222 140-450 10^3/uL Mean Platelet Volume 9.5 6.9-10.8 fL Neutrophils (%) (Auto) 52.5 37.0-80.0 % Lymphocytes (%) (Auto) 33.4 10.0-50.0 % Monocytes (%) (Auto) 12.7 H 0.0-12.0 % Eosinophils (%) (Auto) 1.0 0.0-7.0 % Basophils (%) (Auto) 0.4 0.0-2.0 % Neutrophils # (Auto) 2.3 1.6-8.6 10 ^3/uL Lymphocytes # (Auto) 1.5 0.4-5.4 10 ^3/uL Monocytes # (Auto) 0.6 0-1.3 10 ^3/uL Eosinophils # (Auto) 0 0-0.8 10 ^3/uL Basophils # (Auto) 0 0-0.2 10 ^3/uL Nucleated Red Blood Cells 0.1 % Sodium Level 143 136-145 mmol/L Potassium Level 4.4 3.5-5.1 mmol/L Chloride Level 109 H 98-107 mmol/L Carbon Dioxide Level 26 20-31 mmol/L Anion Gap 8 5-15 Blood Urea Nitrogen 15 9-23 mg/dL Creatinine 1.05 0.700-1.30 mg/dL Glomerular Filtration Rate Calc 83 >90 mL/min BUN/Creatinine Ratio 14.3 10.0-20.0 Serum Glucose 114 H 74-106 mg/dL Calcium Level 10.0 8.7-10.4 mg/dL Magnesium Level 2.4 1.6-2.6 mg/dL B-Type Natriuretic Peptide 43.72 0-100 pg/mL Lipase 44 12-53 U/L Thyroid Stimulating Hormone (TSH) 0.62 0.55-4.78 uIU/mL Current Medications Medications (Trade) Dose Ordered Sig/Rachelle Route Start Time Stop Time Status Last Admin Sodium Chloride 1,000 ml @ 1,000 mls/hr Q1H ONCE IV 02/19/25 14:15 02/19/25 15:14 DC 02/19/25 14:15 Sodium Chloride 1,000 ml @ 1,000 mls/hr Q1H ONCE IV 02/19/25 16:30 02/19/25 17:29 DC 02/19/25 18:05 X-Ray, Labs, Meds, VS Comment 55-year-old male here today with a chief complaint of weakness. Vital signs stable, afebrile. Physical exam with evidence of patient appearing to be very tired and slow to respond to questions. Patient is answering questions appropriately although slowly. Labs overall reassuring without evidence of significant abnormalities. Patient was given 2 L of normal saline and still stated that he felt too weak to ambulate. Patient unable to care for himself. Plan made to admit the patient for further management and care. Images Reviewed?: Images reviewed and evaluated by me Time of 1ST Reevaluation: 14:45 Reevaluation 1ST: Unchanged Time of 2ND Reevaluation: 19:02 Reevaluation 2ND: Unchanged Patient Education/Counseling: Diagnosis, Treatment Family Education/Counseling: No Family Present Departure 1 Departure Time of Disposition: 19:02 Impression: Primary Impression: Metabolic encephalopathy Additional Impressions: Dehydration Viral illness Disposition: ADMITTED INPATIENT Admit to: [facility] Condition: Guarded Critical Care Note Critical Care Time?: Yes (35 min-critical care time only) Stability Stability form required: No Heart Score Heart Score: Heart Score Response (Comments) Value History N/A 0 EKG N/A 0 Age N/A 0 Risk Factors N/A 0 Troponin N/A 0 Total 0 I personally scribed for WILLIAM VENTURA MD ([email or web address]) on 02/19/25 at 14:15. Electronically submitted by Eros No ([facility] [place] [place] WILLIAM VENTURA MD Feb 19, 2025 14:15
[2025-02-19 15:21] LABS: Hematocrit 47.8 % (41.0-53.0); Hemoglobin 16.6 g/dL (13.5-17.5); Mean Corpuscular Hemoglobin 30.2 pg (28.0-32.0); Mean Corpuscular Volume 86.9 fL (80.0-100.0); Nucleated Red Blood Cells % 0.1 %
[2025-02-19 15:32] LABS: Potassium 4.4 mmol/L (3.5-5.1); Sodium 143 mmol/L (136-145)
[2025-02-19 15:33] LABS: Anion Gap 8 (5-15); Carbon Dioxide 26 mmol/L (20-31)
[2025-02-19 15:34] LABS: Calcium 10.0 mg/dL (8.7-10.4)
[2025-02-19 15:36] LABS: Lipase 44.0 U/L (12-53); Magnesium 2.4 mg/dL (1.6-2.6)
[2025-02-19 15:39] LABS: BUN/Creatinine Ratio 14.3 (10.0-20.0); Blood Urea Nitrogen 15 mg/dL (9-23); Chloride 109 mmol/L (98-107); Glucose 114 mg/dL (74-106)
[2025-02-19 17:22] VITALS: PULSE 83; RESP 14; O2SAT 100
--- NOTE | 2025-02-19 17:34 | DVH ---
CHEST RADIOGRAPH INDICATION: eval for pna TECHNIQUE: Single frontal view of the chest was obtained. COMPARISON: CT CHEST WITHOUT CONTRAST on DOS: 08/27/24 FINDINGS: Elevated right hemidiaphragm. Mild pulmonary vascular congestion. No significant pleural effusion. No pneumothorax. Nonenlarged cardiomediastinal silhouette. IMPRESSION: Mild pulmonary vascular congestion.
[2025-02-19 21:20] VITALS: PULSE 81; RESP 16; O2SAT 98
--- NOTE | 2025-02-19 22:41 | DVHHPRES ---
History of Present Illness Resident Creating Document: GEORGES STEELE RESIDENT History of Present Illness Paco Hines, 55 year old male with past medical history of degenerative disc disease,spinal stimulator in place, AFib on Eliquis, hypertension, schizophrenia, anxiety, neuropathy, GERD, frontal and ethmoid sinusitis, signi ficant marijuana abuse presented to the ER with the complaints of having low energy and head, neck and back pain. He also reports having generalized weakness. He does not require oxygen at home, however during history taking the patient was on oxygen. He reports having 3-4 times diarrhea today, not mixed with blood. He reports few years ago he woke up paralyzed, lost sense of balance. Then he was diagnosed with disc disease, he underwent multiple surgeries. Now all his limbs are weak. Past medical history: As above Past surgical history: Multiple neck, back and spine surgeries. Allergies: Codeine Maker Up Folding: Dr. Gallardo Smoking cigarettes: Quit 20 years ago. Fifteen years moderate smoker. Marijuana: Smokes marijuana every day No methamphetamine Alcohol: Last drink was 15 years ago Code status: Patient is DNR, he reports having advanced directive. Review of Systems Neurological: Weakness Allergies: Coded Allergies: No Known Drug Allergy (Verified Allergy, Unknown, 10/22/23) Codeine (Verified Adverse Reaction, Unknown, 07/16/14) Medications Current Medications Medications Dose Ordered Sig/Rachelle Route Start Time Stop Time Status Last Admin Dose Admin Acetaminophen 500 mg Q8HP PRN PO 02/19/25 22:45 Exam Vital Signs Vital Signs Date Time Temp Pulse Resp B/P (MAP) Pulse Ox O2 Delivery O2 Flow Rate FiO2 02/19/25 18:37 91 13 121/73 (89) 100 02/19/25 17:22 Nasal Cannula* 2 28 02/19/25 17:22 97.5 97.5 Exam Pt is lying on bed General Appearance: Alert, Oriented X3, Cooperative, Mild distress HEENT: Atraumatic, Mucous membranes moist/pink Respiratory: Bilateral wheezing present, Normal air movement, No added sounds Cardiovascular: Regular rate, Normal S1, Normal S2, No murmurs Abdominal/ : Active bowel sounds, Soft, no distention, no tenderness Extremities: No edema, Normal pulses, No tenderness/swelling Skin: No Significant rash, except past surgical scars Neuro: Right lower extremity 1/5 strength, left lower extremity 2/5 strength, decreased sensation around the T4 region Psych/Mental Status: Mental status NL, Mood NL Nurse was there as project management engineer during examination Labs/Xrays Labs Test 02/19/25 18:48 02/19/25 15:00 Range/Units Troponin I High Sensitivity < 3 L </=54 ng/L White Blood Count 4.4 4.4-10.8 10^3/uL Red Blood Count 5.50 4.5-5.90 10^6/uL Hemoglobin 16.6 13.5-17.5 g/dL Hematocrit 47.8 41.0-53.0 % Mean Corpuscular Volume 86.9 80.0-100.0 fL Mean Corpuscular Hemoglobin 30.2 28.0-32.0 pg Mean Corpuscular Hemoglobin Concent 34.8 32.0-36.0 g/dL Red Cell Distribution Width 14.1 11.8-14.3 % Platelet Count 222 140-450 10^3/uL Mean Platelet Volume 9.5 6.9-10.8 fL Neutrophils (%) (Auto) 52.5 37.0-80.0 % Lymphocytes (%) (Auto) 33.4 10.0-50.0 % Monocytes (%) (Auto) 12.7 H 0.0-12.0 % Eosinophils (%) (Auto) 1.0 0.0-7.0 % Basophils (%) (Auto) 0.4 0.0-2.0 % Neutrophils # (Auto) 2.3 1.6-8.6 10 ^3/uL Lymphocytes # (Auto) 1.5 0.4-5.4 10 ^3/uL Monocytes # (Auto) 0.6 0-1.3 10 ^3/uL Eosinophils # (Auto) 0 0-0.8 10 ^3/uL Basophils # (Auto) 0 0-0.2 10 ^3/uL Nucleated Red Blood Cells 0.1 % Sodium Level 143 136-145 mmol/L Potassium Level 4.4 3.5-5.1 mmol/L Chloride Level 109 H 98-107 mmol/L Carbon Dioxide Level 26 20-31 mmol/L Anion Gap 8 5-15 Blood Urea Nitrogen 15 9-23 mg/dL Creatinine 1.05 0.700-1.30 mg/dL Glomerular Filtration Rate Calc 83 >90 mL/min BUN/Creatinine Ratio 14.3 10.0-20.0 Serum Glucose 114 H 74-106 mg/dL Calcium Level 10.0 8.7-10.4 mg/dL Magnesium Level 2.4 1.6-2.6 mg/dL B-Type Natriuretic Peptide 43.72 0-100 pg/mL Lipase 44 12-53 U/L Thyroid Stimulating Hormone (TSH) 0.62 0.55-4.78 uIU/mL SEPSIS Sepsis Screen Date sepsis recognized/suspect: Feb 19, 2025 Time Sepsis recognized/suspect: 1721 Recent Procedure: No On Antibiotic Therapy: No Respiratory Rate >20: No Heart Rate >90: No Temp<36 C (96.8 F) or >38.3 C: No SBP <90 or MAP <65 mmHG: No New Acute Mental Status Change: No Is the patient on CPAP, BIPAP,: No Physician Orders Covid19 Antigen Devika (02/19/25 ) Rapid Influenza A&B (02/19/25 19:01) Admit (02/19/25 21:22) Code Status (02/19/25 21:22) Ketorolac Injection (Toradol Injection) (02/19/25 22:45) Acetaminophen Tab Or Cap (Tylenol Tablet (02/19/25 22:45) Stool Wbc (02/19/25 22:31) Stool Bacterial Culture (02/19/25 22:31) Enoxaparin Sodium (Lovenox) (02/19/25 22:45) Aspirin Enteric Coated Tablet (Ecotrin E (02/20/25 10:00) Metoprolol Tartrate Tablet (Lopressor Ta (02/20/25 10:00) Pravastatin Sodium Tablet (Pravachol Tab (02/20/25 22:00) (Nf) Brexpiprazole (Rexulti) (02/20/25 10:00) (Nf) Metoprolol Tartrate (02/20/25 10:00) (Nf) Pregabalin (Lyrica) (02/20/25 10:00) (Nf) Sertraline Hcl (02/20/25 10:00) Vital Signs Date Time Temp Pulse Resp B/P (MAP) Pulse Ox O2 Delivery O2 Flow Rate FiO2 02/19/25 18:37 91 13 121/73 (89) 100 02/19/25 17:22 83 14 100 Nasal Cannula* 2 28 02/19/25 17:22 97.5 83 14 139/80 (99) 100 97.5 Laboratory Tests Test 02/19/25 15:00 White Blood Count 4.4 10^3/uL (4.4-10.8) Medications Medications Dose Ordered Sig/Rachelle Route Start Time Stop Time Status Last Admin Dose Admin Sodium Chloride 1,000 ml @ 1,000 mls/hr Q1H ONCE IV 02/19/25 14:15 02/19/25 15:14 DC 02/19/25 14:15 1,000 MLS/HR Sodium Chloride 1,000 ml @ 1,000 mls/hr Q1H ONCE IV 02/19/25 16:30 02/19/25 17:29 DC 02/19/25 18:05 1,000 MLS/HR Assessment/Plan Assessment/Plan Acute hypoxic respiratory failure secondary to pneumonia due to Gram-positive or Gram-negative organism Rule out heart failure AFib on Eliquis CXR: Pulmonary vascular congestion Echocardiography on 01/24/2025: Normal chambers, valves normal, ejection fraction 60%, no other abnormalities Injection Lasix 40 mg IV daily Nasal cannula oxygen Eliquis held due to inpatient status, therapeutic Lovenox started Intractable back pain due to degenerative disc disease -IV ketorolac -[place] Schizophrenia Anxiety disorder -Resumed home medication Brexipiprazole, sertraline Diarrhea -stool studies sent Neuropathy -Lyrica Marijuana use disorder -counseled regarding cessation for 14 minutes. GI prophylaxis: Pantoprazole DVT prophylaxis: SCDs Diet: Clear liquid Goals of care discussed with the patient for more than 27 minutes: Full code status Case discussed with Dr. Frazier, patient and RN Plan discussed with: Patient, Other (RN) My Orders Orders - GEORGES STEELE RESIDENT Procedure Category Date Status Time Ketorolac Injection PHA 02/19/25 In Process (Toradol Injection) 22:45 Acetaminophen Tab Or PHA 02/19/25 In Process Cap (Tylenol Tablet 22:45 Stool Wbc LAB 02/19/25 Logged 22:31 Stool Bacterial CHI 02/19/25 Uncollected Culture 22:31 Enoxaparin Sodium PHA 02/19/25 Logged (Lovenox) 22:45 Aspirin Enteric PHA 02/20/25 Transmitted Coated Tablet 10:00 Metoprolol Tartrate PHA 02/20/25 Transmitted Tablet (Lopressor Ta 10:00 Pravastatin Sodium PHA 02/20/25 Transmitted Tablet (Pravachol Tab 22:00 (Nf) Brexpiprazole PHA 02/20/25 Transmitted (Rexulti) 10:00 (Nf) Metoprolol PHA 02/20/25 Transmitted Tartrate 10:00 (Nf) Pregabalin PHA 02/20/25 Transmitted (Lyrica) 10:00 (Nf) Sertraline Hcl PHA 02/20/25 Transmitted 10:00 Visit Coding STANDARD RES Billing Provider: ENDY FRAZIER MD Date of Service if different f: Feb 20, 2025 Common Visit Codes: 65102-UYHVEGH INP/OBS CARE (HIGH) Secondary Visit Codes: 45184-ERRCPLRO CARE PLAN 30 MINUTES GEORGES STEELE RESIDENT Feb 19, 2025 22:41
[2025-02-19] MEDS ORDERED: ENOXAPARIN SOD 100 MG/1 ML SYRINGE SC ONE (22:45)
[2025-02-19] MEDS: KETOROLAC TROMETH 30 MG/ML 1ML VIAL IV ONE (23:10)
[2025-02-20] MEDS: HYDROcodone-ACET 5/325MG TAB PO ONE (02:15)
[2025-02-20 06:30] LABS: COVID19 ANTIGEN SOFIA FIA NEGATIVE (NEGATIVE)
[2025-02-20 07:33] VITALS: BP 124/87; PULSE 89; RESP 14; TEMP 97.4; O2SAT 98
[2025-02-20 08:50] LABS: INR 1.03 (0.9-1.15); Partial Thromboplastin Time 28.8 SEC (24.5-34.5); Prothrombin Time 10.9 sec (9.3-11.8)
[2025-02-20] MEDS: ACETAMINOPHEN 500 MG TAB or CAP PO PRN (09:17)
[2025-02-20] MEDS ORDERED: FUROSEMIDE 40 MG/4 ML VIAL IV SCH (10:00)
[2025-02-20] MEDS ORDERED: ASPirin-EC 81 mg tab PO SCH (10:00)
[2025-02-20] MEDS ORDERED: PREGABALIN CAPSULE 75 MG CAP PO SCH (10:00)
[2025-02-20] MEDS ORDERED: METOPROLOL TARTRATE 50 MG TAB PO SCH ×2 (10:00)
[2025-02-20] MEDS ORDERED: SERTRALINE HCL 50 MG TAB PO SCH (10:00)
[2025-02-20 10:10] LABS: Urine Protein, UAD TRACE (Negative)
[2025-02-20] MEDS ORDERED: OXYCODONE W/ ACETAMINOPHEN 5/325MG TABLET PO PRN (11:15)
--- NOTE | 2025-02-20 16:15 | DVHDSRES ---
Discharge Summary Date of Admission Resident Creating Document: GÉNESIS BEAR RESIDENT Feb 19, 2025 at 21:22 Date of Discharge: Feb 20, 2025 Labs/Diagnostic Data: Laboratory Results Test 02/20/25 08:25 02/20/25 08:10 02/19/25 18:48 02/19/25 15:00 Urine Color Yellow (Yellow) Urine Clarity Clear (Clear) Urine pH 6.0 (5.0-9.0) Urine Specific Glady 1.023 (1.001-1.035) Urine Protein Trace (Negative) Urine Ketones Negative (Negative) Urine Blood Negative /uL (Negative) Urine Nitrite Negative (Negative) Urine Bilirubin Negative (Negative) Urine Urobilinogen Normal mg/dL (Negative) Urine Leukocyte Esterase Negative /uL (Negative) Urine RBC 3 /hpf (0 - 3) Urine Microscopic WBC 1 /HPF (0-3) Urine Squamous Epithelial Cells None seen /hpf (<5) Urine Bacteria Few /hpf (None Seen) Urine Mucus Few (None Seen) Urine Glucose Normal mg/dL (Normal) Stool for White Cells None seen Prothrombin Time 10.9 sec (9.3-11.8) Prothrombin Time INR 1.03 (0.9-1.15) Activated Partial Thromboplast Time 28.8 SEC (24.5-34.5) Troponin I High Sensitivity < 3 ng/L (</=54) White Blood Count 4.4 10^3/uL (4.4-10.8) Red Blood Count 5.50 10^6/uL (4.5-5.90) Hemoglobin 16.6 g/dL (13.5-17.5) Hematocrit 47.8 % (41.0-53.0) Mean Corpuscular Volume 86.9 fL (80.0-100.0) Mean Corpuscular Hemoglobin 30.2 pg (28.0-32.0) Mean Corpuscular Hemoglobin Concent 34.8 g/dL (32.0-36.0) Red Cell Distribution Width 14.1 % (11.8-14.3) Platelet Count 222 10^3/uL (140-450) Mean Platelet Volume 9.5 fL (6.9-10.8) Neutrophils (%) (Auto) 52.5 % (37.0-80.0) Lymphocytes (%) (Auto) 33.4 % (10.0-50.0) Monocytes (%) (Auto) 12.7 % (0.0-12.0) Eosinophils (%) (Auto) 1.0 % (0.0-7.0) Basophils (%) (Auto) 0.4 % (0.0-2.0) Neutrophils # (Auto) 2.3 10 ^3/uL (1.6-8.6) Lymphocytes # (Auto) 1.5 10 ^3/uL (0.4-5.4) Monocytes # (Auto) 0.6 10 ^3/uL (0-1.3) Eosinophils # (Auto) 0 10 ^3/uL (0-0.8) Basophils # (Auto) 0 10 ^3/uL (0-0.2) Nucleated Red Blood Cells 0.1 % Sodium Level 143 mmol/L (136-145) Potassium Level 4.4 mmol/L (3.5-5.1) Chloride Level 109 mmol/L (98-107) Carbon Dioxide Level 26 mmol/L (20-31) Anion Gap 8 (5-15) Blood Urea Nitrogen 15 mg/dL (9-23) Creatinine 1.05 mg/dL (0.700-1.30) Glomerular Filtration Rate Calc 83 mL/min (>90) BUN/Creatinine Ratio 14.3 (10.0-20.0) Serum Glucose 114 mg/dL (74-106) Calcium Level 10.0 mg/dL (8.7-10.4) Magnesium Level 2.4 mg/dL (1.6-2.6) B-Type Natriuretic Peptide 43.72 pg/mL (0-100) Lipase 44 U/L (12-53) Thyroid Stimulating Hormone (TSH) 0.62 uIU/mL (0.55-4.78) Test 02/19/25 04:31 Influenza Type A Antigen Negative (Negative) Influenza Type B Antigen Negative (Negative) SARS-CoV-2 Antigen (Rapid) Negative (NEGATIVE) Other Laboratory Tests 02/19/25 15:00 Brief Hx & Hospital Course: Paco Hines, 55 year old male with past medical history of degenerative disc disease,spinal stimulator in place, AFib on Eliquis, hypertension, schizophrenia, anxiety, neuropathy, GERD, frontal and ethmoid sinusitis, significant marijuana abuse presented to the ER with the complaints of having low energy and head, neck and back pain. He also reports having generalized weakness. He does not require oxygen at home, however during history taking the patient was on oxygen. He reports having 3-4 times diarrhea today, not mixed with blood.Patient was admitted to the hospital for further workup and care. Patient refused care and left the hospital against medical advice. Condition at Discharge: Undetermined Final Diagnosis/Problems List Acute hypoxic respiratory failure secondary to below pneumonia due to Gram-positive or Gram-negative organism Ruled out heart failure AFib on Eliquis Intractable back pain due to degenerative disc disease Schizophrenia Anxiety disorder Diarrhea Neuropathy Marijuana use disorder Discharge Disposition: AMA Discharge Instruct/Medications Scheduled Apixaban Base (Eliquis), 1 TAB PO BID, (Reported) Aspirin (Aspir-81), 81 MG PO BID, (Reported) Azithromycin (Zithromax Z-Fernando), 250 MG PO DAILY Benztropine Mesylate (Benztropine Mesylate), 1 TAB PO DAILY, (Reported) Brexpiprazole (Rexulti), 1 TAB PO DAILY, (Reported) Cephalexin (Keflex Capsule), 2 CAP PO BID Famotidine (Pepcid Tablet), 20 MG PO Q12HR Furosemide (Furosemide), 40 MG PO BIDD, (Reported) Lubiprostone (Amitiza), 1 CAP PO DAILY, (Reported) Lubiprostone (Lubiprostone), 1 CAP PO DAILY, (Reported) Lurasidone Hydrochloride (Latuda), 60 MG PO DAILY, (Reported) Metoprolol Tartrate (Lopressor), 50 MG PO BID Metoprolol Tartrate (Metoprolol Tartrate), 100 MG PO BID, (Reported) Morphine Sulfate (Morphine Sulfate Er), 30 MG PO TID, (Reported) Pregabalin (Lyrica), 1 CAP PO BID, (Reported) Sertraline Hcl (Sertraline Hcl), 1 TAB PO BID, (Reported) Warfarin Sodium (Warfarin Sodium), 5 MG PO DAILY Scheduled PRN Acetaminophen (Acetaminophen), 500 MG PO PRN PRN for MILD PAIN, (Reported) Oxycodone W/ Acetaminophen (Percocet 10/325), 1 TAB PO Q4HP PRN for MODERATE PAIN, (Reported) Pravastatin Sodium (Pravachol Tablet), 20 MG GT QHSP PRN Miscellaneous Medications Morphine Sulfate (Morphine Sulfate Cr), 1 TAB PO, (Reported) Pregabalin (Pregabalin), 1 CAP PO, (Reported) Vortioxetine Hydrobromide (Trintellix), 5 MG PO, (Reported) Discharge Statement: "Patient was advised to return to the ER or call 911 if any headaches, dizziness, shortness of breath, chest pain, abdominal pain, bleeding, fevers, or worsening of medical condition. Patient was counseled about treatment plan, medications, possible side effects, patientverbalized understanding. All questions were answered to the best of my ability. This discharge took greater then 30 minutes in planning, reviewing documentation, counseling the patient, and discussing with other team members." ASSESSMENT ASSESSMENT Assessment Visit Coding STANDARD RES Billing Provider: LANDON VILLAR MD Date of Service if different f: Feb 20, 2025 Common Visit Codes: 19232-XDH/OBS DISCH DAY >30min GÉNESIS BEAR RESIDENT Feb 20, 2025 16:15 LANDON VILLAR MD Feb 22, 2025 10:12
[2025-02-20] MEDS ORDERED: PRAVASTATIN SODIUM 20 MG TAB GT SCH (22:00)
--- NOTE | 2025-02-22 09:36 | ECG ---
[facility] Test Date: 2025-02-19 Test Time: 13:08:10 Pat Name: ARMINDA CENTENO Department: ED Room: [facility]6ER Gender: M Plumbing Engineer: ANITA : 1970 Requested By: EMERGENCY EMERGENCY Order Number: [id number] Reading MD: Measurements Intervals [place] Rate: 87 P: 0 MS: 0 QRS: 3 QRSD: 94 T: 60 QT: 355 QTc: 427 Interpretive Statements Atrial fibrillation Please click the below link to view image of tracing.
== END 2025-02-20 11:47 | disposition left against medical advice (07) | DRG 177 ==
LOC: ER 13:04 → OVERFLOW 21:22
PROVIDERS: ADMIT Student in an Organized Health Care Education/Training Program; ATTEND Student in an Organized Health Care Education/Training Program
DX: J15.69 Pneumonia due to other Gram-negative bacteria (principal); G93.41 Metabolic encephalopathy; J96.01 Acute respiratory failure with hypoxia; F12.10 Cannabis abuse, uncomplicated; E86.0 Dehydration; I48.91 Unspecified atrial fibrillation; B34.9 Viral infection, unspecified; J15.9 Unspecified bacterial pneumonia; I50.9 Heart failure, unspecified; I11.0 Hypertensive heart disease with heart failure; F20.9 Schizophrenia, unspecified; Z53.29 Procedure and treatment not carried out because of patient's decision for other reasons; M51.369 Other intervertebral disc degeneration, lumbar region without mention of lumbar back pain or lower extremity pain; F41.9 Anxiety disorder, unspecified; K21.9 Gastro-esophageal reflux disease without esophagitis; G62.9 Polyneuropathy, unspecified; Z20.822 Contact with and (suspected) exposure to COVID-19; Z88.5 Allergy status to narcotic agent
CPT/HCPCS: 36415; 71045; 80048; 81001; 83690; 83735; 83880; 84443; 84484; 85025; 85048; 85610; 85730; 87426; 87804; 93005; 96360; 96361; 99291; G0378; J1885